=== PATIENT | female | born 1985 | race Asian ===

== ENCOUNTER 2016-02-20 16:18 | Emergency (ER) | payer OTHER ==
[2016-02-20 16:38] VITALS: BP 114/77; PULSE 97; TEMP 98.7; BMI 29.4
--- NOTE | 2016-02-20 17:03 | PDOC ---
History of Present Illness - General Chief Complaint: Nausea/Vomiting Stated Complaint: VOMITING SICK Time Seen by Provider: 02/20/16 17:00 Past History - Past Medical History Allergies/Adverse Reactions: Allergies Allergy/AdvReac Type Severity Reaction Status Date / Time No Known Allergies Allergy Verified 02/20/16 16:33 Home Medications: Ambulatory Orders Amox-Tr/K Cl [Augmentin - 875Mg Tablet] 1 tab PO BID #14 tablet 02/20/16 Benzonatate [Tessalon Pearls -] 200 mg PO TID #42 cap 02/20/16 Fluticasone Prop 0.05% Nasal [Flonase -] 1 - 2 spray NS DAILY #1 spray.pump 11/26 Asthma: No Cancer: No Cardiac Disorders: No Diabetes: Yes (niddm) HTN: No Seizures: No Thyroid Disease: Yes - Psycho/Social/Smoking Cessation Hx Anxiety: No Suicidal Ideation: No Smoking Status: No Smoking History: Never smoked Have you smoked in the past 12 months: No Number of Cigarettes Smoked Daily: 0 Information on smoking cessation initiated: No Hx Alcohol Use: No Drug/Substance Use Hx: No Substance Use Type: None Hx Substance Use Treatment: No *Physical Exam - Vital Signs Last Vital Signs Temp Pulse Resp BP Pulse Ox 98.7 F 97 H 18 114/77 100 02/20/16 16:34 02/20/16 16:34 02/20/16 16:34 02/20/16 16:34 02/20/16 16:34 ED Treatment Course - LABORATORY CBC & Chemistry Diagram: 02/20/16 17:45 02/20/16 18:01 Medical Decision Making - Medical Decision Making 02/21/16 00:24 I 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 89-year-old female presented because of persistent nasal congestion, cough and fever despite having finished a course of Zithromax and Tamiflu. Labs were reviewed. Patient had no infiltrates on her chest x-ray. Impression was sinusitis. She is discharged with descriptions for antibiotics, nasal decongestant *DC/Admit/Observation/Transfer Diagnosis at time of Disposition: Sinusitis - Discharge Dispostion Disposition: HOME Condition at time of disposition: Stable - Prescriptions Prescriptions: Amox-Tr/K Cl [Augmentin - 875Mg Tablet] 1 tab PO BID #14 tablet Fluticasone Prop 0.05% Nasal [Flonase -] 1 - 2 spray NS DAILY #1 spray.pump Benzonatate [Tessalon Pearls -] 200 mg PO TID #42 cap - Referrals Referrals: Terrie Lancaster MD [Primary Care Provider] - - Patient Instructions Additional Instructions: -Do not sleep supine and try to sleep with minimum 2 to 3 pillows -Take over the counter Sudafed -Take a hot shower before bed to clear out sinuses -make up girl prescriptions for 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
[2016-02-20] MEDS ORDERED: SODIUM CHLORIDE 1,000 ML IV STA (17:31)
[2016-02-20 18:06] LABS: BASOPHIL 0.8 % (0-2.0); EOSINOPHIL 0.4 % (0-4.5); MCH 22.7 pg (25.7-33.7); MCHC 30.9 g/dl (32.0-36.0); MEAN CELL VOLUME 73.3 fl (80-96); MEAN PLT VOLUME 8.1 fl (7.5-11.1); NEUTROPHILS 77.2 % (42.8-82.8); PLATELET COUNT 421 K/MM3 (134-434); RDW 16.6 % (11.6-15.6); WHITE BLOOD COUNT 19.5 K/mm3 (4.0-10.0)
[2016-02-20 18:12] LABS: URINE APPEARANCE CLEAR; URINE BILIRUBIN 1+ (NEGATIVE); URINE COLOR LT. YELLOW; URINE GLUCOSE (UA) NEGATIVE (NEGATIVE); URINE KETONE 1+ (NEGATIVE); URINE LEUK ESTERASE NEGATIVE (NEGATIVE); URINE NITRITE NEGATIVE (NEGATIVE); URINE UROBILINOGEN 0.2 E.U/dl E.U./dl (0.2-1.0)
[2016-02-20 18:29] LABS: URINE BLOOD 2+ (NEGATIVE); URINE PROTEIN 2+ (NEGATIVE)
--- NOTE | 2016-02-20 18:29 | PDOC ---
History of Present Illness - General Chief Complaint: Nausea/Vomiting Stated Complaint: VOMITING SICK Time Seen by Provider: 02/20/16 17:00 History Source: Patient Exam Limitations: No Limitations - History of Present Illness Initial Comments: 02/20/16 18:11 Patient is a 30 year old female with a PMHx of DMII who presents to the ED complaining of a 3 week history of nonproductive cough, nasal congestion, rhinorrhea nausea, nonbloody nonbilious vomiting, sinus pressure, ear fullness, and fevers. Patient states she took a z-pack and tamiflu that she completed and still remains the same. She states her cough has been ongoing causing her to have muscle aches throughout her upper body. She has been around her infant daughter and who have also been sick with similar symptoms. Patient also complains of nonbloody diarrhea for the last three to four weeks with the last episode this afternoon at 16:00. In the ED patient's vitals were within normal limits with no fever or palpitations. She denies palpitation, shortness of breath, chest pain She denies dysuria, frequency, urgency, hematuria She denies dizziness, loss of consciousness, acute visual changes PMHx: DM II, hypothyroidism PSHx: Allergies: NKDA Social: denies drugs, alcohol, smoking PCP: Dr. Tonny Falcon Past History - Past Medical History Allergies/Adverse Reactions: Allergies Allergy/AdvReac Type Severity Reaction Status Date / Time No Known Allergies Allergy Verified 02/20/16 16:33 Home Medications: Ambulatory Orders Amox-Tr/K Cl [Augmentin - 875Mg Tablet] 1 tab PO BID #14 tablet 02/20/16 Benzonatate [Tessalon Pearls -] 200 mg PO TID #42 cap 02/20/16 Fluticasone Prop 0.05% Nasal [Flonase -] 1 - 2 spray NS DAILY #1 spray.pump 11/26 Asthma: No Cancer: No Cardiac Disorders: No Diabetes: Yes (niddm) HTN: No Seizures: No Thyroid Disease: Yes - Psycho/Social/Smoking Cessation Hx Anxiety: No Suicidal Ideation: No Smoking Status: No Smoking History: Never smoked Have you smoked in the past 12 months: No Number of Cigarettes Smoked Daily: 0 Information on smoking cessation initiated: No Hx Alcohol Use: No Drug/Substance Use Hx: No Substance Use Type: None Hx Substance Use Treatment: No Review of Systems - Review of Systems Constitutional: Yes: Chills, Fever, Weakness. No: Diaphoresis, Night Sweats HEENTM: Yes: Ear Pain, Nose Congestion. No: Blurred Vision, Double Vision Respiratory: Yes: Cough, Wheezing. No: Orthopnea, Shortness of Breath, SOB with Exertion, SOB at Rest, Productive cough, Hemoptysis Cardiac (ROS): No: Chest Pain, Edema, Irregular Heart Rate, Lightheadedness, Palpitations, Syncope ABD/GI: Yes: Diarrhea, Nausea, Vomiting, Abdominal cramping. No: Constipated : No: Burning, Dysuria, Discharge Musculoskeletal: Yes: Muscle Pain. No: Back Pain, Joint Pain Integumentary: No: Bruising, Erythema Neurological: Yes: Headache. No: Numbness, Paresthesia, Seizure, Tingling, Tremors, Weakness, Unsteady Gait, Ataxia Psychiatric: No: Anxiety, Depression Endocrine: No: Excessive Sweating, Flushing, Intolerance to Cold, Intolerance to Heat Hematologic/Lymphatic: No: Anemia, Blood Clots *Physical Exam - Vital Signs Last Vital Signs Temp Pulse Resp BP Pulse Ox 98.7 F 97 H 18 114/77 100 02/20/16 16:34 02/20/16 16:34 02/20/16 16:34 02/20/16 16:34 02/20/16 16:34 - Physical Exam General Appearance: Yes: Other HEENT: positive: EOMI, TERESA, TMs Normal, Pharynx Normal, Nasal Congestion, Rhinorrhea, Sinus Tenderness. negative: Pharyngeal Erythema, Tonsillar Exudate , Tonsillar Erythema, Hearing Decreased, TM Bulging, TM Erythema Neck: positive: Supple. negative: Carotid bruit, Decreased range of motion Respiratory/Chest: positive: Chest Tender, Lungs Clear, Normal Breath Sounds. negative: Labored Respiration, Decreased Breath Sounds, Rales, Rhonchi, Stridor , Wheezing, Hyperresonant, Dullness, Plerual Rub Cardiovascular: positive: Regular Rhythm, Regular Rate, S1, S2. negative: Edema , JVD, Bradycardia, Tachycardia Gastrointestinal/Abdominal: positive: Tender, Soft, Tenderness (diffuse upon palpation ). negative: Decreased BS Musculoskeletal: positive: Normal Inspection. negative: CVA Tenderness (R), CVA Tenderness (L) Extremity: positive: Normal Capillary Refill, Normal Inspection, Normal Range of Motion Integumentary: positive: Normal Color, Warm Neurologic: positive: Fully Oriented, Alert, Normal Mood/Affect, Normal Response , Motor Strength 06/14 ED Treatment Course - LABORATORY CBC & Chemistry Diagram: 02/20/16 17:45 02/20/16 18:01 Medical Decision Making - Medical Decision Making 02/20/16 18:34 Patient is a 30 year old female with a PMHx of hypothyroidism and DMII who presents to the ED complaining of nonproductive cough, rhinorrhea, fever, chills , nausea, vomiting, abdominal pain, nasal congestion, ear fullness, sinus pressure for the last 3-4 weeks. Patient went to her PCP recently and prescribed her Azithromycin with Tamiflu that she completed yesterday. In the ED patient was afebrile. Differential Diagnosis include but not limited to Pneumonia, Bronchitis, Influenza, Asthma, Sinusitis, URI. ED Course and Treatment: -CBC -CMP -U/A -Chest X-ray -1 bolus IV NS for dehydration -Robitussin AC for cough 02/20/16 19:05 -CBC revealed a WBC of 19.5 -U/A Negative for UTI -CMP pending -Chest x-ray pending -Tylenol 975mg ordered 02/20/16 19:25 -CMP wnl -Chest x-ray revealed no acute pathology -Will order 1 duoneb due to excessive coughing -Will begin Augmentin 875mg -Will discharge after Duoneb treatment with a prescription for Augmentin for Sinusitis, Flonase and Tessalon Perle. *DC/Admit/Observation/Transfer Diagnosis at time of Disposition: Sinusitis Qualifiers: Sinusitis location: unspecified location Chronicity: acute Recurrence: not specified Qualified Code(s): J01.90 - Acute sinusitis, unspecified - Discharge Dispostion Disposition: HOME Condition at time of disposition: Stable Admit: No - Prescriptions Prescriptions: Amox-Tr/K Cl [Augmentin - 875Mg Tablet] 1 tab PO BID #14 tablet Fluticasone Prop 0.05% Nasal [Flonase -] 1 - 2 spray NS DAILY #1 spray.pump Benzonatate [Tessalon Pearls -] 200 mg PO TID #42 cap - Referrals Referrals: Terrie Lancaster MD [Primary Care Provider] - - Patient Instructions Additional Instructions: -Do not sleep supine and try to sleep with minimum 2 to 3 pillows -Take over the counter Sudafed -Take a hot shower before bed to clear out sinuses -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
[2016-02-20 18:34] LABS: URINE MUCUS MANY; URINE RBC 5 /hpf (0-3); URINE WBC 12 /hpf (3-5)
[2016-02-20] MEDS ORDERED: guaiFENesin/CODEINE 10 ML UNIT-DOSE CUPS PO ONE (18:34)
[2016-02-20 18:46] LABS: ALBUMIN 3.9 g/dl (3.4-5.0); ANION GAP 6 (8-16); BILIRUBIN,TOTAL 0.4 mg/dL (0.2-1.0); CALCIUM 9.2 mg/dL (8.5-10.1); CO2 26 mmol/L (21-32); CREATININE 0.7 mg/dL (0.55-1.02); GLUCOSE,RANDOM 87 mg/dL (74-106); SGPT/ALT 26 U/L (12-78); TOT PROT 8.5 g/dl (6.4-8.2)
[2016-02-20 18:47] LABS: ALK PHOS 96 U/L (45-117)
[2016-02-20] MEDS ORDERED: guaiFENesin/CODEINE 10 ML UNIT-DOSE CUPS ONE (18:52)
[2016-02-20 19:04] LABS: SGOT/AST 20 U/L (15-37)
[2016-02-20] MEDS ORDERED: ACETAMINOPHEN 325 MG TABLET (FP) PO ONE (19:13)
--- NOTE | 2016-02-20 19:32 | PDOC ---
Attending Attestation - Resident Resident Name: Gini Loza - HPI HPI: 02/20/16 19:31 30 yo female w fever,cough,URI symptoms for several weeks. Pt is NIDDM. finished tamiflu prescribed by PCP still symptoms - Physicial Exam PE: 02/20/16 19:32 alert and conversant 30 yo female maxillary sinus tenderness neck supple left TM-good light reflex,normal TM, right TM + cerumen lungs cta b/l abd soft,no rebound, no guarding ext from skin no rash 02/20/16 19:40 - Medical Decision Making 02/20/16 19:41 pt had neg cxr/neg UA,+ leukocystosis, normal glucose symptoms c/w sinusitis Pt treated for sinusitis, URI and discharged
[2016-02-20] MEDS ORDERED: AMOX TR/POT CLAV 875MG/125MG TABLETS (FP) PO ONE (19:33)
[2016-02-20] MEDS ORDERED: ALBUTEROL SO4 2.5/IPRATROPIUM 0.5 INH SOL 3 ML VIAL.NEB. NEB ONE ×2 (19:33→19:34)
[2016-02-20] MEDS ORDERED: ACETAMINOPHEN 325 MG TABLET (FP) ONE (19:34)
[2016-02-20] MEDS ORDERED: AMOX TR/POT CLAV 875MG/125MG TABLETS (FP) ONE (19:34)
== END 2016-02-20 20:08 | disposition home or self-care (01) ==
LOC: JER 16:18
PROC: 3E0F7GC Introduction of Other Therapeutic Substance into Respiratory Tract, Via Natural or Artificial Opening (ICD-10-PCS; principal; 2016-02-20)
PROC: 3E0337Z Introduction of Electrolytic and Water Balance Substance into Peripheral Vein, Percutaneous Approach (ICD-10-PCS; 2016-02-20)
DX: J01.90 Acute sinusitis, unspecified (principal); E11.9 Type 2 diabetes mellitus without complications; Z79.84 Long term (current) use of oral hypoglycemic drugs
CPT/HCPCS: 36415; 71010-TC; 80053; 81003; 81015; 84703; 85025; 94640; 96360; 99282-25

== ENCOUNTER 2016-11-13 20:14 | Emergency (ER) | payer OTHER ==
[2016-11-13 20:26] VITALS: BP 132/81; PULSE 75; TEMP 98; BMI 28.5
[2016-11-13] MEDS ORDERED: SODIUM CHLORIDE 1,000 ML IV STA (22:10)
[2016-11-13] MEDS ORDERED: METOCLOPRAMIDE HCL INJECTION 10 MG/2 ML VIAL IVPB ONE (22:11)
[2016-11-13] MEDS ORDERED: METOCLOPRAMIDE HCL INJECTION 10 MG/2 ML VIAL ONE (22:23)
[2016-11-13 22:26] LABS: URINE APPEARANCE SLCLOUDY; URINE BILIRUBIN NEGATIVE (NEGATIVE); URINE BLOOD 3+ (NEGATIVE); URINE COLOR YELLOW; URINE GLUCOSE (UA) NEGATIVE (NEGATIVE); URINE KETONE NEGATIVE (NEGATIVE); URINE LEUK ESTERASE NEGATIVE (NEGATIVE); URINE NITRITE NEGATIVE (NEGATIVE); URINE UROBILINOGEN NEGATIVE mg/dL (0.2-1.0)
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
[2016-11-13 22:38] LABS: BASOPHIL 0.9 % (0-2.0); EOSINOPHIL 2.3 % (0-4.5); MCHC 31.9 g/dl (32.0-36.0); MEAN CELL VOLUME 75.1 fl (80-96); MEAN PLT VOLUME 8.6 fl (7.5-11.1); NEUTROPHILS 60.8 % (42.8-82.8); PLATELET COUNT 327 K/MM3 (134-434); RDW 15.4 % (11.6-15.6); WHITE BLOOD COUNT 13.6 K/mm3 (4.0-10.0)
[2016-11-13 22:43] LABS: URINE PROTEIN 2+ (NEGATIVE)
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
[2016-11-13 22:44] LABS: URINE RBC 509 /hpf (0-3); URINE WBC 630 /hpf (3-5)
[2016-11-13 23:07] LABS: ALBUMIN 3.5 g/dl (3.4-5.0); ALK PHOS 81 U/L (45-117); ANION GAP 10 (8-16); BILIRUBIN,TOTAL 0.1 mg/dL (0.2-1.0); CALCIUM 8.9 mg/dL (8.5-10.1); CO2 23 mmol/L (21-32); CREATININE 0.6 mg/dL (0.55-1.02); GLUCOSE,RANDOM 113 mg/dL (74-106); SGOT/AST 15 U/L (15-37); SGPT/ALT 20 U/L (12-78); TOT PROT 7.3 g/dl (6.4-8.2)
[2016-11-14] MEDS ORDERED: IBUPROFEN 400 MG TABLET (FP) PO ONE ×2 (01:34→01:53)
[2016-11-14] MEDS ORDERED: METHOCARBAMOL 500 MG TABLET PO ONE (01:34)
[2016-11-14] MEDS ORDERED: NITROFURANTOIN MACROCRYSTAL 50 MG CAPSULE (FP) PO SCH (01:45)
[2016-11-14] MEDS ORDERED: METHOCARBAMOL 500 MG TABLET ONE (01:53)
[2016-11-14] MEDS ORDERED: NITROFURANTOIN MACROCRYSTAL 50 MG CAPSULE (FP) ONE (01:53)
--- NOTE | 2016-11-14 13:02 | PDOC ---
Patient Follow-up (Call Back) - Post ED Follow - Up Reason for Call Back: Complaint/Condition F/U (pharmacy called states that medications that were prescribed and not covered under his insurance requesting to be changed to naproxen and Flexeril, prescription sent)
== END 2016-11-14 02:02 | disposition home or self-care (01) ==
LOC: JER 20:14
PROC: 3E033GC Introduction of Other Therapeutic Substance into Peripheral Vein, Percutaneous Approach (ICD-10-PCS; principal; 2016-11-13)
DX: M54.2 Cervicalgia (principal); M54.5 Low back pain; Y92.414 Local residential or business street as the place of occurrence of the external cause; Y93.89 Activity, other specified; Y99.8 Other external cause status; E11.9 Type 2 diabetes mellitus without complications; Z79.84 Long term (current) use of oral hypoglycemic drugs; E03.9 Hypothyroidism, unspecified; V43.52XA Car driver injured in collision with other type car in traffic accident, initial encounter
CPT/HCPCS: 36415; 70450-TC; 71020-TC; 72050-TC; 72100-TC; 80053; 81003; 81015; 84703; 85025; 99282-25

== ENCOUNTER 2017-09-03 17:14 | Emergency (ER) | payer OTHER ==
--- NOTE | 2017-09-03 17:29 | PDOC ---
Rapid Medical Evaluation Time Seen by Provider: 09/03/17 17:29 Medical Evaluation: Allergies Allergy/AdvReac Type Severity Reaction Status Date / Time Penicillins Allergy Verified 11/13/16 20:33 09/03/17 17:30 Pt states she has three days of R neck pain, R shoulder pain, L rib pain and chest pain. Pt states that she feels the pain radiate down her R shoulder. Pain is made worse with movement. Exam: Ambulatory: AAOx3, moving all extremities Orders: urine preg Pt to proceed to ED for further eval. Discharge Disposition - Diagnosis Neck pain - Referrals - Patient Instructions - Post Discharge Activity
[2017-09-03 17:32] VITALS: BP 132/71; PULSE 80; TEMP 98.1; BMI 29.2
[2017-09-03] MEDS ORDERED: KETOROLAC TROMETHAMINE 60 MG/2 ML VIAL IM ONE (17:49)
[2017-09-03] MEDS ORDERED: CYCLOBENZAPRINE HCL 10 MG TABLET (FP) PO ONE (17:49)
--- NOTE | 2017-09-03 18:04 | PDOC ---
History of Present Illness - General Chief Complaint: Pain Stated Complaint: MUSCLE PAIN Time Seen by Provider: 09/03/17 17:29 History Source: Patient - History of Present Illness Timing/Duration: other Associated Symptoms: reports: nausea/vomiting. denies: diaphoresis, fever/ chills, shortness of breath Past History - Past Medical History Allergies/Adverse Reactions: Allergies Allergy/AdvReac Type Severity Reaction Status Date / Time Penicillins Allergy Verified 09/03/17 17:29 Home Medications: Ambulatory Orders Levothyroxine Sodium [Levo-T] 88 mcg PO DAILY 11/13/16 Cyclobenzaprine HCl [Flexeril 10 mg] 10 mg PO BID #20 tablet 11/14/16 Cyclobenzaprine HCl [Flexeril -] 10 mg PO TID #9 tablet 09/03/17 Ibuprofen [Motrin -] 2 tab PO Q6H #30 tablet 09/03/17 Metformin HCl [Metformin HCl ER] 500 mg PO BID 09/03/17 Venlafaxine HCl ER [Effexor Xr -] 37.5 mg PO DAILY 09/03/17 Asthma: No Cancer: No Cardiac Disorders: No Diabetes: Yes (niddm) HTN: No Seizures: No Thyroid Disease: Yes - Suicide/Smoking/Psychosocial Hx Smoking Status: No Smoking History: Never smoked Have you smoked in the past 12 months: No Number of Cigarettes Smoked Daily: 0 Hx Alcohol Use: No Drug/Substance Use Hx: No Substance Use Type: None Hx Substance Use Treatment: No Review of Systems - Review of Systems Constitutional: No: Fever Respiratory: No: Cough, Shortness of Breath Cardiac (ROS): No: Chest Pain, Lightheadedness, Palpitations ABD/GI: Yes: Nausea, Vomiting. No: Constipated, Diarrhea, Abdominal cramping : No: Dysuria, Flank Pain, Hematuria Musculoskeletal: Yes: Back Pain, Joint Pain. No: Joint Swelling *Physical Exam - Vital Signs Last Vital Signs Temp Pulse Resp BP Pulse Ox 98.1 F 80 20 132/71 100 09/03/17 17:29 09/03/17 17:29 09/03/17 17:29 09/03/17 17:29 09/03/17 17:29 - Physical Exam General Appearance: Yes: Appropriately Dressed. No: Apparent Distress HEENT: positive: Normal Voice Neck: positive: Supple Respiratory/Chest: negative: Respiratory Distress Gastrointestinal/Abdominal: positive: Soft. negative: Tender Musculoskeletal: negative: CVA Tenderness Extremity: positive: Normal Inspection, Other (pain to R shoulder with RUE abduction). negative: Tender, Swelling Integumentary: positive: Dry, Warm Neurologic: positive: Fully Oriented, Alert, Normal Mood/Affect Medical Decision Making - Medical Decision Making 09/03/17 17:53 32-year-old female, history of lqn-[id number] diabetes, hypothyroid, here with multiple complaints including bilateral upper back pain radiating to right shoulder and right arm 3 days. Unable to describe pain but states it is 8 out of 10, constant and worse when she moves her right upper extremity. Denies any trauma or obvious inciting factors. Did not take anything for pain. No h/o similar sxs. No chest pain, shortness of breath or palpitations. Also reports 3 e/o n/v over the past 2 days. No abd pain, change in BM, f/c. States she is sexually active with but uses condoms See exam Upper back/shoulder pain No trauma Exam remarkable for pain to site w/ ROM -pain control -reassess Intermittent n/v x 2 days No other GI sxs No irreg bleed No n/v currently Abd benign -upreg pending 09/03/17 19:21 Pt reports improvement in pain. Upreg negative. Patient stable for discharge with pain meds and to follow-up with her primary care physician *DC/Admit/Observation/Transfer Diagnosis at time of Disposition: Shoulder pain, right Qualifiers: Chronicity: acute Qualified Code(s): M25.511 - Pain in right shoulder Nausea & vomiting Qualifiers: Vomiting type: unspecified Vomiting Intractability: unspecified Qualified Code( s): R11.2 - Nausea with vomiting, unspecified - Discharge Dispostion Disposition: HOME Condition at time of disposition: Improved - Prescriptions Prescriptions: Cyclobenzaprine HCl [Flexeril -] 10 mg PO TID #9 tablet Ibuprofen [Motrin -] 2 tab PO Q6H #30 tablet - Referrals Referrals: Chester Alejandre MD [Primary Care Provider] - - Patient Instructions Printed Discharge Instructions: DI for Shoulder Pain Additional Instructions: The cause of your back and shoulder pain is most likely muscular. Take medications as prescribed and if symptoms persist, please follow-up with your primary care physician - Post Discharge Activity
[2017-09-03 18:46] LABS: URINE APPEARANCE CLEAR; URINE BILIRUBIN NEGATIVE (<2.0 mg/dL); URINE COLOR LTYELLOW; URINE GLUCOSE (UA) NEGATIVE (NEGATIVE); URINE KETONE NEGATIVE (NEGATIVE); URINE LEUK ESTERASE NEGATIVE (NEGATIVE); URINE NITRITE NEGATIVE (NEGATIVE); URINE PROTEIN NEGATIVE (NEGATIVE); URINE UROBILINOGEN NEGATIVE mg/dL (0.2-1.0)
[2017-09-03] MEDS ORDERED: KETOROLAC TROMETHAMINE 60 MG/2 ML VIAL ONE (18:48)
[2017-09-03] MEDS ORDERED: CYCLOBENZAPRINE HCL 10 MG TABLET (FP) ONE (18:49)
[2017-09-03 18:51] LABS: EPI CELLS FEW /HPF (FEW); URINE MUCUS RARE
== END 2017-09-03 19:23 | disposition home or self-care (01) ==
LOC: JERFT 17:14
PROC: 3E0233Z Introduction of Anti-inflammatory into Muscle, Percutaneous Approach (ICD-10-PCS; principal; 2017-09-03)
DX: M25.511 Pain in right shoulder (principal); R11.2 Nausea with vomiting, unspecified
CPT/HCPCS: 81003; 81015; 84703; 99281-25

== ENCOUNTER 2018-06-15 02:16 | Emergency (ER) | payer OTHER ==
--- NOTE | 2018-06-15 02:24 | PDOC ---
Attending Attestation - Resident Resident Name: LanieRambo - ED Attending Attestation I have performed the following: I have examined & evaluated the patient, The case was reviewed & discussed with the resident, I agree w/resident's findings & plan - HPI HPI: 06/15/18 02:49 N+V that began a couple hrs back. She is 17 weeks . Known IUP. Pt has never had AM sickness. She is . No ill contacts. Pt doesn't work. Pt will be hydrated and given antiemetics. She complains of slight abd pain due to the wretching. - Physicial Exam PE: 06/15/18 03:54 Agree with resident exam. - Medical Decision Making 06/15/18 03:54 Pt has intractable vomiting and she is 17 weeks . Her WBC is 17. Other labs are pending. She is being hydrated and received antiemetics. She will get a sono in the AM, as she is complaining of abd pain. 06/15/18 04:38 Pt is feeling vastly improved and she is ambulating about. 06/15/18 04:39 UA pending Heart Score/ECG Review - ECG Intrepretation Rhythm: Regular Rhythm - Ciales Ciales: Normal - P and GA Delta Wave(s) Present: No WPW: No - QRS Poor R Wave Progression: No - ST and T Early Repolarization: No Non Specific ST-T Wave changes: Yes Flattened T Waves: Yes Prolonged Q-T Interval: Yes - ECG Impressions Normal ECG: Yes Non-specific ST Elevation: No Ischemic Changes: Yes Torsades eduardo Pointes: No WPW: No
[2018-06-15 02:28] VITALS: TEMP 96; BMI 28.5
[2018-06-15] MEDS ORDERED: ONDANSETRON 4 MG/2 ML VIAL ONE (02:33)
[2018-06-15] MEDS ORDERED: METOCLOPRAMIDE HCL INJECTION 10 MG/2 ML VIAL ONE (02:33)
[2018-06-15] MEDS ORDERED: ONDANSETRON 4 MG/2 ML VIAL IVPUSH ONE (02:35)
[2018-06-15] MEDS ORDERED: FAMOTIDINE 20 MG/50 ML IVPB 20 MG/50 ML MG IVPB ONE ×2 (02:37→02:43)
[2018-06-15] MEDS ORDERED: METOCLOPRAMIDE HCL INJECTION 10 MG/2 ML VIAL IVPUSH ONE (02:37)
[2018-06-15] MEDS ORDERED: MAGNESIUM SULF 50% (8.12 MEQ/2 ML-1 GM VIAL) IVPB ONE (03:19)
[2018-06-15] MEDS ORDERED: MAGNESIUM 1GM/D5W - 2 GM/200 ML IVPB IVPB ONE (03:25)
[2018-06-15 03:41] LABS: BASO % 0.7 % (0-2.0); EOS % 1.9 % (0-4.5); HEMATOCRIT 33.4 % (32.4-45.2); HEMOGLOBIN 10.5 GM/dL (10.7-15.3); LYMPH % 35.3 % (8-40); MCH 24.5 pg (25.7-33.7); MCHC 31.4 g/dl (32.0-36.0); MEAN CELL VOLUME 78.1 fl (80-96); MEAN PLT VOLUME 9.9 fl (7.5-11.1); MONO % 6.2 % (3.8-10.2); NEUT % 55.9 % (42.8-82.8); PLATELET COUNT 332 K/MM3 (134-434); RBC 4.28 M/mm3 (3.60-5.2); RDW 14.5 % (11.6-15.6); WHITE BLOOD COUNT 17.1 K/mm3 (4.0-10.0)
--- NOTE | 2018-06-15 03:42 | PDOC ---
History of Present Illness - General Chief Complaint: Nausea/Vomiting Stated Complaint: NAUSEA/5 MO Time Seen by Provider: 06/15/18 02:24 History Source: Patient Exam Limitations: No Limitations - History of Present Illness Initial Comments: 06/15/18 03:13 32 yo currently 5 months preg no sig pmh presents to the ER for sudden onset NB/NB vomiting, dizziness and feelings of syncope. Pt states the s/s began suddenly 2 hours ago. Pt did not lose consciousness. Denies sick contacts , recent travel or eating different food. Pt Denies abdominal pain, vaginal bleeding, F/C, CP, SOB, back pain, changes in bowel or bladder habits. Pt sees Dr. Rosenthal in OB, saw him last week with reported normal check up and US. Past History - Past Medical History Allergies/Adverse Reactions: Allergies Allergy/AdvReac Type Severity Reaction Status Date / Time Penicillins Allergy Verified 06/15/18 02:26 Home Medications: Ambulatory Orders Levothyroxine Sodium [Levo-T] 88 mcg PO DAILY 11/13/16 Asthma: No Cancer: No Cardiac Disorders: No COPD: No Diabetes: Yes (niddm) HTN: No Seizures: No Thyroid Disease: Yes - Suicide/Smoking/Psychosocial Hx Smoking Status: No Smoking History: Never smoked Have you smoked in the past 12 months: No Number of Cigarettes Smoked Daily: 0 Hx Alcohol Use: No Drug/Substance Use Hx: No Substance Use Type: None Hx Substance Use Treatment: No Review of Systems - Review of Systems Constitutional: No: Chills, Fever Respiratory: No: Shortness of Breath Cardiac (ROS): No: Chest Pain ABD/GI: Yes: Nausea, Vomiting. No: Constipated, Diarrhea : No: Burning, Dysuria, Discharge, Frequency, Flank Pain, Hematuria, Incontinence Musculoskeletal: No: Back Pain Neurological: Yes: Weakness (generalized). No: Headache, Numbness, Paresthesia *Physical Exam - Vital Signs Last Vital Signs Temp Pulse Resp BP Pulse Ox 96.0 F L 74 20 129/81 99 06/15/18 02:24 06/15/18 02:24 06/15/18 02:24 06/15/18 02:24 06/15/18 02:24 - Physical Exam General Appearance: Yes: Nourished, Appropriately Dressed, Apparent Distress ( vomiting/retching) HEENT: positive: EOMI Neck: positive: Supple Respiratory/Chest: positive: Lungs Clear, Normal Breath Sounds. negative: Crackles, Rales, Rhonchi, Stridor, Wheezing Cardiovascular: positive: Regular Rhythm, Regular Rate, S1, S2. negative: Edema , JVD, Murmur Vascular Pulses: Dorsalis-Pedis (R): 4+, Doralis-Pedis (L): 4+ Gastrointestinal/Abdominal: positive: Flat, Soft. negative: Pulsatile Mass, Distended, Guarding, Rebound, Tenderness Musculoskeletal: negative: CVA Tenderness Extremity: positive: Normal Capillary Refill, Normal Inspection, Normal Range of Motion Integumentary: positive: Normal Color, Dry, Warm Neurologic: positive: Fully Oriented, Alert, Normal Mood/Affect, Normal Response , Motor Strength 5/5. negative: Confused, Disoriented ED Treatment Course - LABORATORY CBC & Chemistry Diagram: 06/15/18 03:19 06/15/18 03:19 - Medications Given in the ED: ED Medications Discontinued Medications Generic Name Dose Route Start Last Admin Trade Name Zacheryq PRN Reason Stop Dose Admin Famotidine/Sodium Chloride 20 mg in 50 mls @ 100 mls/hr 06/15/18 02:37 02:45 Pepcid 20 Mg Premixed Ivpb - IVPB 06/15/18 03:06 100 mls/hr ONCE ONE Administration Metoclopramide HCl 10 mg 06/15/18 02:37 06/15/18 02:41 Reglan Injection - IVPUSH 06/15/18 02:38 10 mg ONCE ONE Administration Ondansetron HCl 4 mg 06/15/18 02:35 06/15/18 02:41 Zofran Injection IVPUSH 06/15/18 02:36 4 mg ONCE ONE Administration Medical Decision Making - Medical Decision Making 06/15/18 03:42 Carlos A cell [phone] 32 yo currently 5 months preg no sig pmh presents to the ER for sudden onset NB/NB vomiting, dizziness and feelings of syncope. Pt states the s/s began suddenly 2 hours ago. Pt did not lose consciousness. Denies sick contacts , recent travel or eating different food. Pt Denies abdominal pain, vaginal bleeding, F/C, CP, SOB, back pain, changes in bowel or bladder habits. Pt sees Dr. Rosenthal in OB, saw him last week with reported normal check up and US. Vitals stable Pt presents to the ED n/v and retching for 2 hours. Pt vitals stable, denies abdominal pain. Will send labs to assess electrolyte status, give fluids and antiemetics Pt no longer vomiting, resting comfortably. Bedside US shows live IUP, will send for formal scan in the AM 06/15/18 04:37 Pt ambulating without difficulty and states she is no longer dizzy or nauseas. 06/15/18 06:30 Pt continues to rest comfortably without episodes of vomiting 06/15/18 06:53 CBC shows elevated WBC likely from vomiting/retching. No systemic s/s of infection, UA normal, no pulmonary s/s CMP elevated BS and UA shows 3+ glucose. Pt was given D5 NS. Gestational DM screening done by OB was negative. Will print copy of labs and make sure pt follows up with Primary Doctor and OB Pt s/o to day team for transvag and dispo *DC/Admit/Observation/Transfer - Referrals Referrals: Chester Alejandre MD [Primary Care Provider] - - Patient Instructions - Post Discharge Activity
[2018-06-15 03:54] LABS: INR 0.98 (0.83-1.09); PROTHROMBIN TIME (PATIENT) 11.6 SEC (9.7-13.0)
[2018-06-15 03:56] LABS: ACTIVATED PTT 30.3 SECONDS (25.2-36.5)
[2018-06-15] MEDS ORDERED: DEXTROSE 5%-NORMAL SALINE 500 ML IV ONE (04:09)
[2018-06-15 04:17] LABS: ALK PHOS 62 U/L (45-117); ANION GAP 10 MMOL/L (8-16); BILIRUBIN,TOTAL < 0.1 mg/dL (0.2-1); BLOOD UREA NITROGEN 9 mg/dL (7-18); CALCIUM 8.9 mg/dL (8.5-10.1); CHLORIDE 108 mmol/L (98-107); CO2 20 mmol/L (21-32); CREATININE 0.6 mg/dL (0.55-1.3); GLUCOSE,RANDOM 153 mg/dL (74-106); LIPASE 146 U/L (73-393); POTASSIUM 3.6 mmol/L (3.5-5.1); SGOT/AST 14 U/L (15-37); SGPT/ALT 13 U/L (13-61); SODIUM 139 mmol/L (136-145); TOT PROT 7.1 g/dl (6.4-8.2)
[2018-06-15 05:22] LABS: URINE APPEARANCE CLEAR; URINE BILIRUBIN NEGATIVE (NEGATIVE); URINE COLOR YELLOW; URINE GLUCOSE (UA) 3+ (NEGATIVE); URINE KETONE NEGATIVE (NEGATIVE); URINE LEUK ESTERASE NEGATIVE (NEGATIVE); URINE NITRITE NEGATIVE (NEGATIVE); URINE PROTEIN NEGATIVE (NEGATIVE); URINE UROBILINOGEN 0.2 mg/dL (0.2-1.0)
--- NOTE | 2018-06-15 06:59 | PDOC ---
*Physical Exam - Vital Signs Last Vital Signs Temp Pulse Resp BP Pulse Ox 96.0 F L 67 18 106/61 100 06/15/18 02:24 06/15/18 06:36 06/15/18 06:36 06/15/18 06:36 06/15/18 06:36 ED Treatment Course - LABORATORY CBC & Chemistry Diagram: 06/15/18 03:19 06/15/18 03:19 - ADDITIONAL ORDERS Additional order review: Laboratory Results 06/15/18 06/15/18 06/15/18 05:06 03:19 03:19 PT with INR 11.60 INR 0.98 PTT (Actin FS) 30.3 Sodium 139 Potassium 3.6 Chloride 108 H Carbon Dioxide 20 L Anion Gap 10 BUN 9 Creatinine 0.6 Creat Clearance w eGFR 116.60 Random Glucose 153 H Calcium 8.9 Total Bilirubin < 0.1 L AST 14 L ALT 13 Alkaline Phosphatase 62 Total Protein 7.1 Albumin 3.0 L Lipase 146 Urine Color Yellow Urine Appearance Clear Urine pH 7.0 D Ur Specific [place] 1.003 L Urine Protein Negative Urine Glucose (UA) 3+ H Urine Ketones Negative Urine Blood Negative Urine Nitrite Negative Urine Bilirubin Negative Urine Urobilinogen 0.2 Ur Leukocyte Esterase Negative 06/15/18 03:19 RBC 4.28 MCV 78.1 L MCHC 31.4 L RDW 14.5 MPV 9.9 D Neutrophils % 55.9 Lymphocytes % 35.3 D Monocytes % 6.2 Eosinophils % 1.9 Basophils % 0.7 - Medications Given in the ED: ED Medications Discontinued Medications Generic Name Dose Route Start Last Admin Trade Name Freq PRN Reason Stop Dose Admin Famotidine/Sodium Chloride 20 mg in 50 mls @ 100 mls/hr 06/15/18 02:37 02:45 Pepcid 20 Mg Premixed Ivpb - IVPB 06/15/18 03:06 100 mls/hr ONCE ONE Administration Dextrose/Sodium Chloride 500 mls @ 1,000 mls/hr 06/15/18 04:09 06/15/18 04:16 D5-Ns - IV 06/15/18 04:38 1,000 mls/hr ONCE ONE Administration Magnesium Sulfate 2 gm 06/15/18 03:19 06/15/18 03:31 Magnesium Sulfate IVPB 06/15/18 03:20 2 gm ONCE ONE Administration Metoclopramide HCl 10 mg 06/15/18 02:37 06/15/18 02:41 Reglan Injection - IVPUSH 06/15/18 02:38 10 mg ONCE ONE Administration Ondansetron HCl 4 mg 06/15/18 02:35 06/15/18 02:41 Zofran Injection IVPUSH 06/15/18 02:36 4 mg ONCE ONE Administration Medical Decision Making - Medical Decision Making 06/15/18 06:54 32 year old female 5 months presented to ED for nausea/vomiting, lightheadedness x2 hours [employer]GER. Pt denied LOC, fever, sick contacts, recent travel , abdominal pain, vaginal bleeding. Last OB visit with Dr. Rosenthal last week. Initial Vital Signs Temp Pulse Resp BP Pulse Ox 96.0 F L 74 20 129/81 99 06/15/18 02:24 06/15/18 02:24 06/15/18 02:24 06/15/18 02:24 06/15/18 02:24 Afebrile. No tachycardia. No tachypnea. Mild hypertension for . No hypoxia on room air. Pt was given IV D5-NS, zofran, pepcid, magnesium with resolution of symptoms. Vital Signs Temperature 96.0 F L 06/15/18 02:24 Pulse Rate 67 06/15/18 06:36 Respiratory Rate 18 06/15/18 06:36 Blood Pressure 106/61 06/15/18 06:36 O2 Sat by Pulse Oximetry (%) 100 06/15/18 06:36 Pt remained afebrile. BP decreased. No tachycardia. No tachypnea. No hypoxia on room air. CBC WBC 17.1 K/mm3 (4.0-10.0) H 06/15/18 03:19 RBC 4.28 M/mm3 (3.60-5.2) 06/15/18 03:19 Hgb 10.5 GM/dL (10.7-15.3) L 06/15/18 03:19 Hct 33.4 % (32.4-45.2) 06/15/18 03:19 MCV 78.1 fl (80-96) L 06/15/18 03:19 MCH 24.5 pg (25.7-33.7) L 06/15/18 03:19 MCHC 31.4 g/dl (32.0-36.0) L 06/15/18 03:19 RDW 14.5 % (11.6-15.6) 06/15/18 03:19 Plt Count 332 K/MM3 (134-434) 06/15/18 03:19 MPV 9.9 fl (7.5-11.1) D 06/15/18 03:19 Absolute Neuts (auto) 9.6 K/mm3 (1.5-8.0) H 06/15/18 03:19 Neutrophils % 55.9 % (42.8-82.8) 06/15/18 03:19 Lymphocytes % 35.3 % (8-40) D 06/15/18 03:19 Monocytes % 6.2 % (3.8-10.2) 06/15/18 03:19 Eosinophils % 1.9 % (0-4.5) 06/15/18 03:19 Basophils % 0.7 % (0-2.0) 06/15/18 03:19 Nucleated RBC % 0 % (0-0) 06/15/18 03:19 Leukocytosis. No anemia. No thrombocytopenia. CMP Sodium 139 mmol/L (136-145) 06/15/18 03:19 Potassium 3.6 mmol/L (3.5-5.1) 06/15/18 03:19 Chloride 108 mmol/L (98-107) H 06/15/18 03:19 Carbon Dioxide 20 mmol/L (21-32) L 06/15/18 03:19 Anion Gap 10 MMOL/L (8-16) 06/15/18 03:19 BUN 9 mg/dL (7-18) 06/15/18 03:19 Creatinine 0.6 mg/dL (0.55-1.3) 06/15/18 03:19 Creat Clearance w eGFR 116.60 (>60) 06/15/18 03:19 Random Glucose 153 mg/dL (74-106) H 06/15/18 03:19 Calcium 8.9 mg/dL (8.5-10.1) 06/15/18 03:19 Total Bilirubin < 0.1 mg/dL (0.2-1) L 06/15/18 03:19 AST 14 U/L (15-37) L 06/15/18 03:19 ALT 13 U/L (13-61) 06/15/18 03:19 Alkaline Phosphatase 62 U/L (45-117) 06/15/18 03:19 Total Protein 7.1 g/dl (6.4-8.2) 06/15/18 03:19 Albumin 3.0 g/dl (3.4-5.0) L 06/15/18 03:19 Lipase 146 U/L (73-393) 06/15/18 03:19 No electrolyte abnormalities. Hyperglycemia. No transaminitis. Normal lipase. Urine Test Results Urine Color Yellow 06/15/18 05:06 Urine Appearance Clear 06/15/18 05:06 Urine pH 7.0 (5.0-8.0) D 06/15/18 05:06 Ur Specific [place] 1.003 (1.010-1.035) L 06/15/18 05:06 Urine Protein Negative (NEGATIVE) 06/15/18 05:06 Urine Glucose (UA) 3+ (NEGATIVE) H 06/15/18 05:06 Urine Ketones Negative (NEGATIVE) 06/15/18 05:06 Urine Blood Negative (NEGATIVE) 06/15/18 05:06 Urine Nitrite Negative (NEGATIVE) 06/15/18 05:06 Urine Bilirubin Negative (NEGATIVE) 06/15/18 05:06 Ur Leukocyte Esterase Negative (NEGATIVE) 06/15/18 05:06 No evidence of UTI. Glucosuria. Pt is pending ultrasound. 06/15/18 09:09 Pt ambulating unassisted, appears well, reported she is hungry. 06/15/18 09:13 US report: single live uterine gestation at 17 weeks 3 days. HR 131. 06/15/18 09:22 Pt tolerated PO water and bread challenge. Pt informed of results and need to follow up with OBGYN and PCP. Pt given copy of US report. Discharge medications: Glolegis Pt discharged. *DC/Admit/Observation/Transfer Diagnosis at time of Disposition: Nausea & vomiting, - Discharge Dispostion Disposition: HOME Condition at time of disposition: Improved Decision to Admit order: No - Prescriptions Prescriptions: Doxylamine Succinate/Vit B6 [Cody Mejia 10-10 mg Tablet] 2 tablet PO HS #6 tablet.dr - Referrals Referrals: Chester Alejandre MD [Primary Care Provider] - - Patient Instructions Printed Discharge Instructions: DI for Hyperglycemia -- Adult, DI for Vomiting -- Adult Additional Instructions: You were seen today for nausea and vomiting. Your lab work showed a high white blood cell count, which may be from the vomiting, please have this number rechecked by your primary physician or OBGYN within a week. Your lab work showed high glucose (sugar) in your blood and urine. This may have been from the fluids you were given today, please have your primary physician or OBGYN recheck this within a week. Your ultrasound was normal. I have sent a medication for nausea/vomiting to your pharmacy. Take as advised on label. Follow up with your primary care doctor in 1-2 days. Follow up with your OBGYN in 1-2 days. Bring all paperwork given to you today to your appointments. Eat bland foods today, bread/rice/toast/applesauce. Tomorrow you can progress your diet as tolerated. Return to the Emergency Department for vomiting, fever, chills, abdominal pain, pelvic pain, vaginal bleeding, lightheadedness like you may pass out, dizziness like the room is spinning, severe headache, visual changes or any other new, worsening or concerning symptoms. - Post Discharge Activity
--- NOTE | 2018-06-15 10:00 | EKG ---
Test Reason : Blood Pressure : / mmHG Vent. Rate : 074 BPM Atrial Rate : 074 BPM P-R Int : 148 ms QRS Dur : 084 ms QT Int : 434 ms P-R-T Axes : 054 012 002 degrees QTc Int : 481 ms NORMAL SINUS RHYTHM PROLONGED QT ABNORMAL ECG WHEN COMPARED WITH ECG OF 30-JUL-2011 20:03, T WAVE VARIATION Confirmed by JYOTHI IRIZARRY MD ([id number]) on 06/15/2018 9:59:34 AM Referred By: Confirmed By:JYOTHI IRIZARRY MD
[2018-06-15 10:33] VITALS: BP 124/77; PULSE 78
== END 2018-06-15 10:25 | disposition home or self-care (01) ==
LOC: JER 02:16
PROC: BY4CZZZ Ultrasonography of Second Trimester, Single Fetus (ICD-10-PCS; principal; 2018-06-15)
PROC: 3E033GC Introduction of Other Therapeutic Substance into Peripheral Vein, Percutaneous Approach (ICD-10-PCS; 2018-06-15)
PROC: 3E033GC Introduction of Other Therapeutic Substance into Peripheral Vein, Percutaneous Approach (ICD-10-PCS; 2018-06-15)
PROC: 3E033GC Introduction of Other Therapeutic Substance into Peripheral Vein, Percutaneous Approach (ICD-10-PCS; 2018-06-15)
PROC: 3E033GC Introduction of Other Therapeutic Substance into Peripheral Vein, Percutaneous Approach (ICD-10-PCS; 2018-06-15)
DX: O26.892 Other specified pregnancy related conditions, second trimester (principal); R11.2 Nausea with vomiting, unspecified; Z3A.17 17 weeks gestation of pregnancy
CPT/HCPCS: 36415; 76801-TC; 76815-TC; 80053; 81003; 83690; 85025; 85610; 85730; 93005; 93010; 96365; 96375; 99284-25

== ENCOUNTER 2018-06-16 16:49 | Emergency (ER) | payer OTHER ==
[2018-06-16 16:56] VITALS: BP 107/51; PULSE 73; TEMP 97.7; BMI 28.6
--- NOTE | 2018-06-16 17:41 | PDOC ---
History of Present Illness - General Chief Complaint: Nausea/Vomiting Stated Complaint: VOMITING Time Seen by Provider: 06/16/18 17:34 Past History - Past Medical History Allergies/Adverse Reactions: Allergies Allergy/AdvReac Type Severity Reaction Status Date / Time Penicillins Allergy Verified 06/15/18 02:26 Home Medications: Ambulatory Orders Levothyroxine Sodium [Levo-T] 88 mcg PO DAILY 11/13/16 Doxylamine Succinate/Vit B6 [Cody Mejia 10-10 mg Tablet] 2 tablet PO HS #6 tablet.dr 06/15/18 Ondansetron [Zofran Odt -] 4 mg SL TID PRN #21 od.tablet MDD 3 tabs 06/16/18 Asthma: No Cancer: No Cardiac Disorders: No COPD: No Diabetes: Yes (niddm) HTN: No Seizures: No Thyroid Disease: Yes - Reproductive History Cervical CA: No Dysfunctional Uterine Bleeding: No Ectopic : No Endometrial CA: No Polycystic Ovaries: No Therapeutic (s) & number: No Tubal Ligation: No - Suicide/Smoking/Psychosocial Hx Smoking Status: No Smoking History: Never smoked Have you smoked in the past 12 months: No Number of Cigarettes Smoked Daily: 0 Hx Alcohol Use: No Drug/Substance Use Hx: No Substance Use Type: None Hx Substance Use Treatment: No Review of Systems - Review of Systems Able to Perform ROS?: Yes Is the patient limited Czech proficient: No Constitutional: No: Symptoms Reported, See HPI, Chills, Diaphoresis, Fever, Loss of Appetite, Malaise, Night Sweats, Weakness, Weight Stable, Unintentional Wgt. Loss, Unexplained wgt Loss, Other HEENTM: Yes: Nose Congestion, Other (mild nasal cpongestion with complaint of ear"fullness"). No: Symptoms Reported, See HPI, Eye Pain, Blurred Vision, Tearing, Recent change in vision, Double Vision, Cataracts, Ear Pain, Ocular Prothesis, Ear Discharge, Nose Pain, Tinnitus, Nose Bleeding, Hearing Loss, Throat Pain, Throat Swelling, Mouth Pain, Dental Problems, Difficulty Swallowing , Mouth Swelling Respiratory: No: Symptoms reported, See HPI, Cough, Orthopnea, Shortness of Breath, SOB with Exertion, SOB at Rest, Stridor, Wheezing, Productive cough, Hemoptysis, Other Cardiac (ROS): No: Symptoms Reported, See HPI, Chest Pain, Edema, Irregular Heart Rate, Lightheadedness, Palpitations, Syncope, Chest Tightness, Other ABD/GI: Yes: Vomiting : No: Symptoms Reported, See HPI, Burning, Dysuria, Discharge, Frequency, Flank Pain, Hematuria, Incontinence, Pain, Urgency, Testicular Mass, Testicular Swelling, Lesions, Testicular Pain, Other Musculoskeletal: No: Symptoms Reported, See HPI, Back Pain, Gout, Joint Pain, Joint Swelling, Muscle Pain, Muscle Weakness, Neck Pain, Joint Stiffness, Other Integumentary: No: Symptoms Reported, See HPI, Bruising, Change in Color, Change in Hair/Nails, Dryness, Erythema, Flushing, Lesions, Lumps, Pallor, Pruritus, Rash, Sweating, Other Neurological: Yes: Headache *Physical Exam - Vital Signs Last Vital Signs Temp Pulse Resp BP Pulse Ox 97.7 F 73 18 107/51 L 100 06/16/18 16:52 06/16/18 16:52 06/16/18 16:52 06/16/18 16:52 06/16/18 16:52 - Physical Exam General Appearance: Yes: Nourished, Appropriately Dressed HEENT: positive: Normal Voice, TMs Normal, Nasal Congestion Neck: positive: Supple Respiratory/Chest: positive: Lungs Clear Cardiovascular: positive: Regular Rhythm, Regular Rate Gastrointestinal/Abdominal: positive: Normal Bowel Sounds, Soft, Protuberent Musculoskeletal: positive: Normal Inspection Extremity: positive: Normal Inspection, Normal Range of Motion Integumentary: positive: Normal Color, Warm Neurologic: positive: Fully Oriented, Alert, Motor Strength 5/5 Medical Decision Making - Medical Decision Making 06/16/18 17:41 31-year-old female states she is approximately 17 weeks and presents because of nausea, vomiting, dizziness, frontal headache. 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 Patient has had about 8 episodes of vomiting so far today. ROS positive for painful plug ears, dizziness, frontal headache, nausea, vomiting, Past surgical history: . 2, para 1. Patient was given a prescription for Diclygis, but it was not covered by her insurance and it would have cost more than $600 Plan IV fluids, Zofran, off with, CBC, chemistry 06/16/18 20:18 pt did not want any labs work. 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 *DC/Admit/Observation/Transfer Diagnosis at time of Disposition: Nasal congestion Nausea and vomiting Qualifiers: Vomiting type: vomiting of fecal matter Qualified Code(s): R11.13 - Vomiting of fecal matter Qualifiers: Weeks of gestation: 17 weeks Qualified Code(s): Z3A.17 - 17 weeks gestation of Headache Qualifiers: Headache type: tension-type Headache chronicity pattern: unspecified pattern Intractability: not intractable Qualified Code(s): G44.209 - Tension-type headache, unspecified, not intractable - Discharge Dispostion Disposition: HOME Condition at time of disposition: Improved - Prescriptions Prescriptions: Ondansetron [Zofran Odt -] 4 mg SL TID PRN #21 od.tablet MDD 3 tabs PRN Reason: Nausea And/Or Vomiting - Referrals Referrals: Chester Alejandre MD [Primary Care Provider] - - Patient Instructions Printed Discharge Instructions: DI for Hyperemesis Gravidarum, DI for Nausea - - Adult, DI for Vomiting -- Adult Additional Instructions: please continue your care your prescription has been e prescribed to [facility] on [address] - Post Discharge Activity
[2018-06-16] MEDS ORDERED: SODIUM CHLORIDE 1,000 ML IV STA (17:46)
[2018-06-16] MEDS ORDERED: ONDANSETRON 4 MG/2 ML VIAL IVPUSH ONE (17:47)
[2018-06-16] MEDS ORDERED: ACETAMINOPHEN 1000 MG/100 ML VIAL (NON FORMULARY) IVPB ONE (17:48)
[2018-06-16] MEDS ORDERED: ACETAMINOPHEN INJECTION 100 ML IVPB ONE (19:30)
[2018-06-16] MEDS ORDERED: ONDANSETRON 4 MG/2 ML VIAL ONE (19:30)
--- NOTE | 2018-06-17 08:27 | EKG ---
Test Reason : Blood Pressure : / mmHG Vent. Rate : 070 BPM Atrial Rate : 070 BPM P-R Int : 130 ms QRS Dur : 078 ms QT Int : 412 ms P-R-T Axes : 051 019 006 degrees QTc Int : 444 ms NORMAL SINUS RHYTHM CANNOT RULE OUT INFERIOR INFARCT , AGE UNDETERMINED ABNORMAL ECG WHEN COMPARED WITH ECG OF 15-JUN-2018 03:03, MINIMAL CRITERIA FOR INFERIOR INFARCT ARE NOW PRESENT Confirmed by MAGDY CERNA, KATIE ([id number]) on 06/17/2018 8:27:26 AM Referred By: Confirmed By:KATIE CURRAN MD
== END 2018-06-16 20:12 | disposition home or self-care (01) ==
LOC: JER 16:49
DX: O26.892 Other specified pregnancy related conditions, second trimester (principal); O21.0 Mild hyperemesis gravidarum; G44.209 Tension-type headache, unspecified, not intractable; O24.912 Unspecified diabetes mellitus in pregnancy, second trimester; O99.282 Endocrine, nutritional and metabolic diseases complicating pregnancy, second trimester; Z3A.17 17 weeks gestation of pregnancy
CPT/HCPCS: 93005; 93010; 99282-25

== ENCOUNTER 2018-06-17 19:59 | Emergency (ER) | payer OTHER ==
--- NOTE | 2018-06-17 20:10 | PDOC ---
Rapid Medical Evaluation Time Seen by Provider: 06/17/18 20:08 Medical Evaluation: Allergies Allergy/AdvReac Type Severity Reaction Status Date / Time Penicillins Allergy Verified 06/15/18 02:26 06/17/18 20:08 HPI: Returns to the ER for vomiting + 17 weeks gravid unable to tolerate PO PE: NAD ORDERS: LABS Quant Beta PIV Discharge Disposition - Diagnosis Hyperemesis gravidarum - Referrals - Patient Instructions - Post Discharge Activity
[2018-06-17 20:11] VITALS: BMI 28.6
[2018-06-17] MEDS ORDERED: SODIUM CHLORIDE 0.9% 1000 ML INFUS.BAG IV ONE (21:34)
[2018-06-17] MEDS ORDERED: MECLIZINE HCL 25 MG TABLET (FP) PO ONE (22:08)
[2018-06-17] MEDS ORDERED: ONDANSETRON 4 MG/2 ML VIAL IVPUSH ONE (22:08)
[2018-06-17 22:20] LABS: BASO % 0.6 % (0-2.0); EOS % 0.4 % (0-4.5); HEMATOCRIT 36.9 % (32.4-45.2); HEMOGLOBIN 11.7 GM/dL (10.7-15.3); LYMPH % 16.9 % (8-40); MCH 24.6 pg (25.7-33.7); MCHC 31.8 g/dl (32.0-36.0); MEAN CELL VOLUME 77.1 fl (80-96); MEAN PLT VOLUME 9.2 fl (7.5-11.1); MONO % 4.4 % (3.8-10.2); NEUT % 77.7 % (42.8-82.8); PLATELET COUNT 341 K/MM3 (134-434); RBC 4.78 M/mm3 (3.60-5.2); RDW 14.2 % (11.6-15.6); WHITE BLOOD COUNT 16.1 K/mm3 (4.0-10.0)
[2018-06-17] MEDS ORDERED: DEXTROSE 5%-LACTATED RINGERS 1,000 ML IV SCH (22:30)
[2018-06-17 22:49] LABS: EPI CELLS 12.9 /HPF (0-5/HPF); PH,URINE 6.5 (5.0-8.0); URINE APPEARANCE CLEAR; URINE BILIRUBIN NEGATIVE (NEGATIVE); URINE CASTS 16 /lpf (0-8); URINE COLOR YELLOW; URINE GLUCOSE (UA) NEGATIVE (NEGATIVE); URINE KETONE 1+ (NEGATIVE); URINE LEUK ESTERASE NEGATIVE (NEGATIVE); URINE NITRITE NEGATIVE (NEGATIVE); URINE PROTEIN TRACE (NEGATIVE); URINE RBC 9 /hpf (0-4); URINE WBC 2 /hpf (0-5)
[2018-06-17] MEDS ORDERED: MECLIZINE HCL 25 MG TABLET (FP) ONE (22:49)
[2018-06-17] MEDS ORDERED: ONDANSETRON 4 MG/2 ML VIAL ONE (22:50)
[2018-06-17 23:02] LABS: ALBUMIN 3.2 g/dl (3.4-5.0); BILIRUBIN,TOTAL 0.2 mg/dL (0.2-1); CALCIUM 9.4 mg/dL (8.5-10.1); CREATININE 0.6 mg/dL (0.55-1.3); POTASSIUM 3.9 mmol/L (3.5-5.1); TOT PROT 7.8 g/dl (6.4-8.2)
--- NOTE | 2018-06-17 23:34 | PDOC ---
History of Present Illness - General Chief Complaint: Nausea/Vomiting Stated Complaint: NAUSEA/VOMITING Time Seen by Provider: 06/17/18 20:08 History Source: Patient Exam Limitations: No Limitations - History of Present Illness Initial Comments: 06/17/18 23:32 32F at 17wks by LMP who presents with nausea and vomiting with intolerance of PO for 3 days. The patient describes nausea, vomiting, with mild chills. She endorses inability to tolerate anything PO. She also endorses dysuria which started today. She denies fevers, vaginal bleeding/discharge, and abdominal pain /cramping. She also denies diarrhea. Past History - Past Medical History Allergies/Adverse Reactions: Allergies Allergy/AdvReac Type Severity Reaction Status Date / Time Penicillins Allergy Verified 06/15/18 02:26 Home Medications: Ambulatory Orders Levothyroxine Sodium [Levo-T] 88 mcg PO DAILY 11/13/16 Doxylamine Succinate/Vit B6 [Diclegis Dr 10-10 mg Tablet] 2 tablet PO HS #6 tablet.dr 06/15/18 Ondansetron [Zofran Odt -] 4 mg SL TID PRN #21 od.tablet MDD 3 tabs 06/16/18 Meclizine HCl 25 mg PO ONCE #14 tablet 06/18/18 Nitrofurantoin Monohyd/M-Cryst [Macrobid -] 100 mg PO BID #14 capsule 06/18/18 Asthma: No Cancer: No Cardiac Disorders: No COPD: No Diabetes: Yes (niddm) HTN: No Seizures: No Thyroid Disease: Yes - Reproductive History Cervical CA: No Dysfunctional Uterine Bleeding: No Ectopic : No Endometrial CA: No Polycystic Ovaries: No Therapeutic (s) & number: No Tubal Ligation: No - Suicide/Smoking/Psychosocial Hx Smoking Status: No Smoking History: Never smoked Have you smoked in the past 12 months: No Number of Cigarettes Smoked Daily: 0 Hx Alcohol Use: No Drug/Substance Use Hx: No Substance Use Type: None Hx Substance Use Treatment: No Review of Systems - Review of Systems Able to Perform ROS?: Yes Comments:: 06/17/18 23:38 GENERAL/CONSTITUTIONAL: No fever or chills. No weakness. HEAD, EYES, EARS, NOSE AND THROAT: No change in vision. No ear pain or discharge. No sore throat. CARDIOVASCULAR: No chest pain, palpitations, or lightheadedness. RESPIRATORY: No cough, wheezing, shortness of breath, or hemoptysis. GASTROINTESTINAL: + for nausea and vomiting. No diarrhea, constipation, or abdominal pain. GENITOURINARY: No dysuria, frequency, hematuria, or change in urination. MUSCULOSKELETAL: No joint or muscle swelling or pain. No neck or back pain. SKIN: No rash or lesions. NEUROLOGIC: No headache, numbness, tingling, focal weakness, loss of consciousness, or change in strength/sensation. Is the patient limited Malagasy proficient: No *Physical Exam - Vital Signs Last Vital Signs Temp Pulse Resp BP Pulse Ox 98 F 79 18 102/60 99 06/17/18 20:10 06/17/18 20:10 06/17/18 20:10 06/17/18 20:10 06/17/18 20:10 - Physical Exam Comments: 06/17/18 23:39 GENERAL: Well developed, well nourished. Awake and alert. No acute distress. HEENT: Normocephalic, atraumatic. Hearing grossly normal. Moist mucous membranes. PERRLA, EOMI. No conjunctival pallor. Sclera are non-icteric. NECK: Supple. Full ROM. No JVD. CARDIOVASCULAR: Regular rate and rhythm. No murmurs, rubs, or gallops. PULMONARY: No evidence of respiratory distress. Lungs clear to auscultation bilaterally. No wheezing, rales or rhonchi. ABDOMINAL: Soft. Gravid. Non-tender. Non-distended. No rebound or guarding. GENITOURINARY: No CVA tenderness bilaterally. MUSCULOSKELETAL: Normal range of motion at all joints. No bony deformities or tenderness. EXTREMITIES: No cyanosis. No clubbing. No edema. No calf tenderness or swelling. SKIN: Warm and dry. Normal capillary refill. No rashes. No jaundice. NEUROLOGICAL: Alert, awake, appropriate. Cranial nerves 2-12 grossly intact. Normal speech. Gait is normal without ataxia. PSYCHIATRIC: Cooperative. Good eye contact. Appropriate mood and affect. ED Treatment Course - LABORATORY CBC & Chemistry Diagram: 06/17/18 22:05 06/17/18 22:05 - ADDITIONAL ORDERS Additional order review: Laboratory Results 06/17/18 22:05 Sodium 137 Potassium 3.9 Chloride 106 Carbon Dioxide 23 Anion Gap 8 BUN 11 Creatinine 0.6 Est GFR (CKD-EPI)AfAm 140.77 Est GFR (CKD-EPI)NonAf 121.46 Random Glucose 86 Calcium 9.4 Total Bilirubin 0.2 AST 13 L ALT 13 Alkaline Phosphatase 65 Total Protein 7.8 Albumin 3.2 L Beta HCG, Quant 4723.1 06/17/18 22:05 RBC 4.78 MCV 77.1 L MCHC 31.8 L RDW 14.2 MPV 9.2 Neutrophils % 77.7 D Lymphocytes % 16.9 D Monocytes % 4.4 Eosinophils % 0.4 Basophils % 0.6 - Medications Given in the ED: ED Medications Discontinued Medications Generic Name Dose Route Start Last Admin Trade Name Freq PRN Reason Stop Dose Admin Sodium Chloride 1,000 ml 06/17/18 21:34 06/17/18 22:46 Normal Saline - IV 06/17/18 21:35 1,000 ml ONCE ONE Administration Medical Decision Making - Medical Decision Making 06/17/18 23:39 32F at 17 weeks who presents to the ER with intractable nausea and vomiting. Pt has not vomited in ED. Pt requesting food. Will give IV hydration and IV zofran and reassess. 06/18/18 00:31 Pt tolerated PO and states she feels much better. UA shows bacteruria. Pt is in second trimester and allergic to PCN's so will send macrobid and d/c with OBGYN f/u. *DC/Admit/Observation/Transfer Diagnosis at time of Disposition: Hyperemesis gravidarum - Discharge Dispostion Disposition: HOME Condition at time of disposition: Stable Decision to Admit order: No - Prescriptions Prescriptions: Meclizine HCl 25 mg PO ONCE #14 tablet Nitrofurantoin Monohyd/M-Cryst [Macrobid -] 100 mg PO BID #14 capsule - Referrals Referrals: Chester Alejandre MD [Primary Care Provider] - - Patient Instructions Printed Discharge Instructions: Nausea of (Alternative Therapy), DI for Vertigo Additional Instructions: Your ER visit is not complete until your follow up with your primary care physician and OBGYN. Please follow up with your primary care physician and OBGYN in 1-2 days. Please return to the ER if you have any signs or symptoms of chest pain, shortness of breath, uncontrollable fever, chills, nausea, vomiting, numbness, tingling, or weakness in any part of your body, changes in vision, or slurred speech. Please take your medications as prescribed. Please return to the ER if symptoms persist, worsen, or new symptoms arise. - Post Discharge Activity
--- NOTE | 2018-06-18 00:02 | PDOC ---
Documentation entered by Andreia Barrett SCRIBE, acting as scribe for Mihir Rodas MD. Mihir Rodas MD: This documentation has been prepared by the Arnold ashraf Daisy, SCRIBE, under my direction and personally reviewed by me in its entirety. I confirm that the documentation accurately reflects all work, treatment, procedures, and medical decision making performed by me. Attending Attestation - Resident Resident Name: Andrew Elder - ED Attending Attestation I have performed the following: I have examined & evaluated the patient, The case was reviewed & discussed with the resident, I agree w/resident's findings & plan - HPI HPI: 06/17/18 22:20 The patient is a 32YOF, currently 17 weeks , who presents to the ED for nausea and vomiting for the past 3 days and dysuria today. She reports she has been unable to tolerate PO intake. She also admits to chills. Patient was previously seen 2 other times in this ED this week for similar symptoms. Allergies: Penicillins - Physicial Exam PE: 06/18/18 00:00 Patient is awake and alert, well-nourished, in no distress Normocephalic, atraumatic PERRLA, EOMI, no nystagmus CTA RRR Abdomen is soft, nontender, nondistended No focal neurological deficits - Medical Decision Making 06/18/18 00:00 32-year-old female, 2 para 1, 17 weeks gestation presents with recurrent nausea, nonbloody nonbilious vomiting and vertigo. Serial abdominal exams reveal no focal tenderness, patient received IV fluids and antiemetics with significant improvements. CBC reveals persistent leukocytosis which is decreased from previous. Urinalysis reveals no evidence of pyuria, 9 RBCs per high-power field are noted. Patient's currently eating a meal in the ER. Will likely discharge.
[2018-06-18 00:49] VITALS: BP 108/64; PULSE 82; TEMP 98.1
== END 2018-06-18 00:57 | disposition home or self-care (01) ==
LOC: JER 19:59
PROC: 3E033GC Introduction of Other Therapeutic Substance into Peripheral Vein, Percutaneous Approach (ICD-10-PCS; principal; 2018-06-17)
DX: O26.892 Other specified pregnancy related conditions, second trimester (principal); O21.0 Mild hyperemesis gravidarum; R82.71 Bacteriuria; Z79.84 Long term (current) use of oral hypoglycemic drugs; O99.282 Endocrine, nutritional and metabolic diseases complicating pregnancy, second trimester; E03.8 Other specified hypothyroidism; O24.912 Unspecified diabetes mellitus in pregnancy, second trimester; Z3A.17 17 weeks gestation of pregnancy
CPT/HCPCS: 36415; 80053; 81003; 84702; 85025; 87086; 99283-25; J7030

== ENCOUNTER 2018-10-30 02:30 | Inpatient (IN) | payer OTHER ==
[~2018-10-30 02:30] MED LIST: ELECTROLYTE-148 SOLN 1,000 ML IV SCH
[2018-10-30 03:44] LABS: BASO % 1.4 % (0-2.0); EOS % 0.8 % (0-4.5); HEMATOCRIT 33.4 % (32.4-45.2); HEMOGLOBIN 10.4 GM/dL (10.7-15.3); MCH 23.4 pg (25.7-33.7); MCHC 31.2 g/dl (32.0-36.0); MEAN PLT VOLUME 10.7 fl (7.5-11.1); MONO % 7.2 % (3.8-10.2); NEUT % 59.6 % (42.8-82.8); RBC 4.46 M/mm3 (3.60-5.2); RDW 15.3 % (11.6-15.6); WHITE BLOOD COUNT 12.5 K/mm3 (4.0-10.0)
[2018-10-30 04:02] LABS: INR 0.95 (0.83-1.09); PROTHROMBIN TIME (PATIENT) 11.2 SEC (9.7-13.0)
[2018-10-30 04:05] LABS: ACTIVATED PTT 27.7 SECONDS (25.2-36.5)
[2018-10-30 04:11] LABS: PLATELET COUNT 199 K/MM3 (134-434)
[2018-10-30 04:16] LABS: PLATELET ESTIMATE ADEQUATE
[2018-10-30 04:39] LABS: BLOOD UREA NITROGEN 20.5 mg/dL (7-18); CALCIUM 10.6 mg/dL (8.5-10.1); POTASSIUM 4.6 mmol/L (3.5-5.1)
[2018-10-30] MEDS ORDERED: CITRIC ACID/SODIUM CITRATE 30 ML UNIT-DOSE CUP PO ONE (05:44)
[2018-10-30] MEDS ORDERED: ELECTROLYTE-148 SOLN 1,000 ML IV SCH (05:45)
--- NOTE | 2018-10-30 05:54 | HP ---
Past Medical History - Primary Care Physician PCP:: Speedy Vee - Admission Chief Complaint: 36.6 weeks, previous c/s . labor . GDM, Hypothyroidism History of Present Illness: 33 yo f g 2 p1001 edc 11/21/18. 36.6 weeks with hx of previous c/s, c/o contraction and diarrhea since 11 am today , cx 32 cm 80 vx -3 mi, fhr cat 1, has regular contraction after was hydrated , requesting repeat c/s, risks discussed History Source: Patient Limitations to Obtaining History: No Limitations - Past Medical History ...: 2 ...Para: 1 ...Term: 1 ...EDC by Dates: 11/21/18 ...EDC by Sono: 11/21/18 Heme/Onc: Yes: Anemia Psych: Yes: Anxiety Endocrine: Yes: Hypothyroidism, Other (GDM) Additional Medical History: Obesity, h/o MRSA 2010 - Past Surgical History Past Surgical History: Yes: None, Hx Myomectomy: No Hx Transabdominal Cerclage: No - Smoking History Smoking history: Never smoked Have you smoked in the past 12 months: No Aproximately how many cigarettes per day: 0 - Alcohol/Substance Use Hx Alcohol Use: No History of Substance Use: reports: None - Social History Usual Living Arrangement: Yes: With Spouse ADL: Independent History of Recent Travel: No Home Medications - Allergies Allergies/Adverse Reactions: Allergies Allergy/AdvReac Type Severity Reaction Status Date / Time Penicillins Allergy Hives Verified 10/30/18 05:39 - Home Medications Home Medications: Ambulatory Orders Levothyroxine Sodium [Levo-T] 112 mcg PO DAILY 11/13/16 Insulin Regular [NOVOLIN R VIAL *IVPUSH / ER / ICU Only*] 10 unit SQ DAILY PRN 10/30/18 Vitamins (Sjr) - 1 tab PO DAILY 10/30/18 Review of Systems - Review of Systems Constitutional: reports: Malaise Eyes: reports: No Symptoms HENT: reports: No Symptoms Neck: reports: No Symptoms Cardiovascular: reports: No Symptoms Respiratory: reports: No Symptoms Gastrointestinal: reports: Diarrhea Genitourinary: reports: No Symptoms Breasts: reports: No Symptoms Reported Musculoskeletal: reports: Muscle Pain Integumentary: reports: No Symptoms Neurological: reports: No Symptoms Endocrine: reports: No Symptoms Hematology/Lymphatic: reports: No Symptoms Psychiatric: reports: No Symptoms Physical Exam - Maternity Constitutional: Yes: Obese Eyes: Yes: WNL HENT: Yes: WNL Neck: Yes: WNL Cardiovascular: Yes: WNL Breast(s): Yes: WNL - Abdominal Exam/OB Fundal Height: 38 Number of Fetuses: Single Presentation: Vertex Contractions: Yes Regularity: Regular Intensity: Mod/Strong Monitor Mode: External Heart Rate Location: LLQ Decelerations: None - Vaginal Exam/OB Vaginal Bleediing: No Speculum Exam: No Dilatation (cm): 2cm Effacement (%): 80 Amniotic Membrane Status: Intact Presentation: Vertex/Position Station: -3 - Physical Exam Musculoskeletal: Yes: WNL Extremities: Yes: WNL Edema: Yes Edema: LLE: Trace, RLE: Trace Deep Tendon Reflex Grade: Normal +2 Psychiatric: Yes: WNL - Labs Lab Results: CBC, BMP 10/30/18 03:30 10/30/18 03:30 Hemorrhage Risk Assessment - Risk Factors Medium Risk Factors: Yes: Prior , uterine surgery,or multiple laparotomies Risk Score: 1 Risk Level: Medium Risk Problem List - Problems (1) with 36 completed weeks gestation Code(s): Z3A.36 - 36 WEEKS GESTATION OF (2) Gestational diabetes Code(s): O24.419 - GESTATIONAL DIABETES MELLITUS IN , UNSP CONTROL Qualifiers: Gestational diabetes mellitus control: insulin-controlled Trimester: third trimester Qualified Code(s): O24.414 - Gestational diabetes mellitus in , insulin controlled (3) Hypothyroidism affecting Code(s): O99.280 - ENDO, NUTRITIONAL AND METAB DISEASES COMP PREG, UNSP TRI; E03.9 - HYPOTHYROIDISM, UNSPECIFIED Qualifiers: Trimester: third trimester Qualified Code(s): O99.283 - Endocrine, nutritional and metabolic diseases complicating , third trimester; E03.9 - Hypothyroidism, unspecified (4) Labor established Code(s): QAV3464 - (5) Previous section complicating Code(s): O34.219 - MATERNAL CARE FOR UNSP TYPE SCAR FROM PREVIOUS DEL Assessment/Plan requesting repeat c/s, risks discussed , explained , declined for repeat c/s
[2018-10-30 06:05] VITALS: BMI 31.8
[2018-10-30] MEDS ORDERED: ONDANSETRON 4 MG/2 ML VIAL IVPUSH PRN (06:35)
[2018-10-30] MEDS ORDERED: KETOROLAC TROMETHAMINE 30 MG/1 ML VIAL ONE (06:42)
[2018-10-30] MEDS ORDERED: ceFAZolin SODIUM 1 GM VIAL ONE (06:46)
[2018-10-30] MEDS ORDERED: OXYTOCIN 20 UNITS in 0.9% NS 20 UNIT/1,000 ML INFUS.BAG IV ONE ×2 (07:09→12:39)
[2018-10-30] MEDS ORDERED: BUPIVACAINE 0.75% IN DEXTROSE/PF 2ML AMPULE NR ONE (07:17)
[2018-10-30] MEDS ORDERED: MIDAZOLAM HCL 2 MG/2 ML SINGLE DOSE VIAL ONE (07:33)
[2018-10-30] MEDS ORDERED: PROPOFOL 20 ML ONE (07:41)
[2018-10-30] MEDS ORDERED: SUCCINYLCHOLINE CHLORIDE 200 MG/10 ML SYRINGE ONE (08:13)
[2018-10-30] MEDS ORDERED: BENZOCAINE 20% 57 GM BOTTLE TP PRN (08:54)
[2018-10-30] MEDS ORDERED: BENZOCAINE 28 GM HEMORRHOIDAL OINTMENT PR PRN (08:54)
[2018-10-30] MEDS ORDERED: diphenhydrAMINE HCL 25 MG CAPSULE (FP) PO PRN (08:54)
[2018-10-30] MEDS ORDERED: WITCH HAZEL 50% (TUCKS) 40 PAD/JAR PAD TP PRN (08:54)
[2018-10-30] MEDS ORDERED: METHYLERGONOVINE MALEATE 0.2 MG/1 ML AMP IM PRN (08:54)
[2018-10-30] MEDS ORDERED: DEXTROSE 5%-LACTATED RINGERS 1,000 ML IV SCH (09:00)
[2018-10-30] MEDS ORDERED: OXYTOCIN 20 UNITS in 0.9% NS 20 UNIT/1,000 ML INFUS.BAG IV SCH (09:00)
[2018-10-30] MEDS ORDERED: IBUPROFEN 800 MG/8 ML IJ IVPB ONE (10:05)
[2018-10-30] MEDS: IBUPROFEN 800 MG/8 ML IJ IVPB PRN (10:15)
[2018-10-30] MEDS: LEVOTHYROXINE NA 112 MCG TABLET (FP) PO SCH (10:37)
[2018-10-30] MEDS: CEFAZOLIN 1 GM/D5W 1 GM/50 ML BAG IVPB SCH ×2 (15:08→22:50)
[2018-10-31] MEDS: LEVOTHYROXINE NA 112 MCG TABLET (FP) PO SCH (06:21)
[2018-10-31] MEDS: IBUPROFEN 800 MG/8 ML IJ IVPB PRN (06:21)
[2018-10-31 06:50] LABS: BASO % 0.3 % (0-2.0); EOS % 1.2 % (0-4.5); HEMATOCRIT 28.5 % (32.4-45.2); LYMPH % 17.2 % (8-40); MCH 23.6 pg (25.7-33.7); MCHC 31.5 g/dl (32.0-36.0); MEAN CELL VOLUME 75.1 fl (80-96); MEAN PLT VOLUME 10.1 fl (7.5-11.1); MONO % 3.5 % (3.8-10.2); NEUT % 77.8 % (42.8-82.8); PLATELET COUNT 191 K/MM3 (134-434); RDW 15.3 % (11.6-15.6); WHITE BLOOD COUNT 14.6 K/mm3 (4.0-10.0)
--- NOTE | 2018-10-31 08:31 | PN ---
Post Progress Note - Subjective Subjective: Patient without acute complaints. Reports tolerating oral intake without nausea or vomiting. Ambulating without dizziness. Denies fevers or chills. Pain well controlled with oral pain medication. without difficulty. Passing flatus. Post Day: 1 Type of Delivery: Repeat C/S Vital Signs: Vital Signs Temperature 98.7 F 10/31/18 06:07 Pulse Rate 82 10/31/18 06:07 Respiratory Rate 18 10/31/18 06:07 Blood Pressure 129/76 10/31/18 06:07 O2 Sat by Pulse Oximetry (%) 94 L 10/30/18 09:30 Breast Exam: Yes: Soft Uterus: Yes: Fundus Firm Incision: Yes: Dressing dry and intact Abdomen/GI: Yes: Abdomen soft Lochia: Yes: Rubra Lochia, amount: Small Extremities: Yes: Calves non-tender Activity: Ambulating - Labs Labs: CBC WBC 14.6 K/mm3 (4.0-10.0) H 10/31/18 05:30 RBC 3.80 M/mm3 (3.60-5.2) 10/31/18 05:30 Hgb 9.0 GM/dL (10.7-15.3) L 10/31/18 05:30 Hct 28.5 % (32.4-45.2) L 10/31/18 05:30 MCV 75.1 fl (80-96) L 10/31/18 05:30 MCH 23.6 pg (25.7-33.7) L 10/31/18 05:30 MCHC 31.5 g/dl (32.0-36.0) L 10/31/18 05:30 RDW 15.3 % (11.6-15.6) 10/31/18 05:30 Plt Count 191 K/MM3 (134-434) 10/31/18 05:30 MPV 10.1 fl (7.5-11.1) 10/31/18 05:30 Absolute Neuts (auto) 11.4 K/mm3 (1.5-8.0) H 10/31/18 05:30 Neutrophils % 77.8 % (42.8-82.8) D 10/31/18 05:30 Lymphocytes % 17.2 % (8-40) D 10/31/18 05:30 Monocytes % 3.5 % (3.8-10.2) L 10/31/18 05:30 Eosinophils % 1.2 % (0-4.5) 10/31/18 05:30 Basophils % 0.3 % (0-2.0) 10/31/18 05:30 Nucleated RBC % 0 % (0-0) 10/31/18 05:30 Platelet Estimate Adequate 10/30/18 03:30 Platelet Comment No clumping noted 10/30/18 03:30 Assessment/Plan POD # 1 VSS, Afebrile Encourage ambulation Routine post op care Rh pos
[2018-10-31] MEDS ORDERED: HYDROCORTISONE 1% TOPICAL CREAM 30 GM TUBE TP PRN (09:37)
[2018-10-31] MEDS: ACETAMINOPHEN 325 MG TABLET (FP) PO PRN (09:53)
[2018-10-31] MEDS: ENOXAPARIN NA (PORCINE) 40 MG/0.4 ML DISP.SYRIN SQ SCH (09:53)
[2018-10-31] MEDS: guaiFENesin 200 MG/10 ML 10 ML UNIT-DOSE CUPS PO PRN (10:13)
[2018-10-31] MEDS: oxyCODONE HCL 5 MG TABLET PO PRN ×3 (13:01→21:01)
[2018-10-31] MEDS: SIMETHICONE 80 MG TAB.CHEW (FP) PO PRN ×3 (13:02→21:01)
[2018-10-31] MEDS: IBUPROFEN 600 MG TABLET (FP) PO PRN ×2 (16:52→21:02)
--- NOTE | 2018-10-31 17:21 | PN ---
Progress Note (short form) - Note Progress Note: Anesthesiologist post op note, POD#1, S/P under spinal anesthesia with duramorph. VSS. Pain controlled. No apparent post anesthesia complications.
[2018-10-31] MEDS: BISACODYL 10 MG SUPP.RECT RC PRN (21:02)
[2018-11-01] MEDS: SIMETHICONE 80 MG TAB.CHEW (FP) PO PRN ×5 (01:52→19:33)
[2018-11-01] MEDS: oxyCODONE HCL 5 MG TABLET PO PRN ×5 (01:52→19:34)
[2018-11-01] MEDS: IBUPROFEN 600 MG TABLET (FP) PO PRN ×5 (01:52→19:33)
[2018-11-01] MEDS: LEVOTHYROXINE NA 112 MCG TABLET (FP) PO SCH (06:33)
[2018-11-01] MEDS: guaiFENesin 200 MG/10 ML 10 ML UNIT-DOSE CUPS PO PRN (06:36)
[2018-11-01] MEDS: ENOXAPARIN NA (PORCINE) 40 MG/0.4 ML DISP.SYRIN SQ SCH (10:21)
--- NOTE | 2018-11-01 13:56 | PN ---
Post Progress Note - Subjective Subjective: Patient without acute complaints. Reports tolerating oral intake without nausea or vomiting. Ambulating without dizziness. Denies fevers or chills. Pain well controlled with oral pain medication. without difficulty. Passing flatus. Post Day: 2 Type of Delivery: Repeat C/S Vital Signs: Vital Signs Temperature 97.5 F L 10/31/18 21:04 Pulse Rate 80 10/31/18 21:04 Respiratory Rate 18 10/31/18 21:04 Blood Pressure 143/80 10/31/18 21:04 O2 Sat by Pulse Oximetry (%) 94 L 10/30/18 09:30 Breast Exam: Yes: Soft Uterus: Yes: Fundus Firm Incision: Yes: Sutures intact Abdomen/GI: Yes: Abdomen soft Lochia: Yes: Rubra Lochia, amount: Small Extremities: Yes: Calves non-tender Activity: Ambulating - Labs Labs: CBC WBC 14.6 K/mm3 (4.0-10.0) H 10/31/18 05:30 RBC 3.80 M/mm3 (3.60-5.2) 10/31/18 05:30 Hgb 9.0 GM/dL (10.7-15.3) L 10/31/18 05:30 Hct 28.5 % (32.4-45.2) L 10/31/18 05:30 MCV 75.1 fl (80-96) L 10/31/18 05:30 MCH 23.6 pg (25.7-33.7) L 10/31/18 05:30 MCHC 31.5 g/dl (32.0-36.0) L 10/31/18 05:30 RDW 15.3 % (11.6-15.6) 10/31/18 05:30 Plt Count 191 K/MM3 (134-434) 10/31/18 05:30 MPV 10.1 fl (7.5-11.1) 10/31/18 05:30 Absolute Neuts (auto) 11.4 K/mm3 (1.5-8.0) H 10/31/18 05:30 Neutrophils % 77.8 % (42.8-82.8) D 10/31/18 05:30 Lymphocytes % 17.2 % (8-40) D 10/31/18 05:30 Monocytes % 3.5 % (3.8-10.2) L 10/31/18 05:30 Eosinophils % 1.2 % (0-4.5) 10/31/18 05:30 Basophils % 0.3 % (0-2.0) 10/31/18 05:30 Nucleated RBC % 0 % (0-0) 10/31/18 05:30 Platelet Estimate Adequate 10/30/18 03:30 Platelet Comment No clumping noted 10/30/18 03:30 Assessment/Plan POD # 2 VSS, Afebrile Encourage ambulation Routine post op care Rh pos
[2018-11-01] MEDS: BISACODYL 10 MG SUPP.RECT RC PRN (18:35)
[2018-11-01] MEDS ORDERED: SENNOSIDES/DOCUSATE COMBO (SENNA PLUS) TABLET (UD) PO PRN (22:00)
[2018-11-02] MEDS: SIMETHICONE 80 MG TAB.CHEW (FP) PO PRN ×5 (02:01→21:21)
[2018-11-02] MEDS: IBUPROFEN 600 MG TABLET (FP) PO PRN ×6 (02:01→21:22)
[2018-11-02] MEDS: oxyCODONE HCL 5 MG TABLET PO PRN ×2 (02:01→06:37)
[2018-11-02] MEDS: LEVOTHYROXINE NA 112 MCG TABLET (FP) PO SCH (06:37)
[2018-11-02] MEDS: guaiFENesin 200 MG/10 ML 10 ML UNIT-DOSE CUPS PO PRN (06:37)
[2018-11-02 07:48] LABS: BASO % 0.5 % (0-2.0); EOS % 2.4 % (0-4.5); HEMATOCRIT 28.6 % (32.4-45.2); LYMPH % 20.7 % (8-40); MCH 23.8 pg (25.7-33.7); MCHC 31.5 g/dl (32.0-36.0); MEAN CELL VOLUME 75.6 fl (80-96); MEAN PLT VOLUME 9.6 fl (7.5-11.1); MONO % 3.4 % (3.8-10.2); PLATELET COUNT 224 K/MM3 (134-434); RBC 3.79 M/mm3 (3.60-5.2); RDW 15.2 % (11.6-15.6); WHITE BLOOD COUNT 10.5 K/mm3 (4.0-10.0)
[2018-11-02] MEDS: ENOXAPARIN NA (PORCINE) 40 MG/0.4 ML DISP.SYRIN SQ SCH (09:42)
[2018-11-02] MEDS: ACETAMINOPHEN 325 MG TABLET (FP) PO PRN ×4 (09:48→21:22)
--- NOTE | 2018-11-02 20:29 | PN ---
Post Progress Note - Subjective Subjective: Patient without acute complaints. Reports tolerating oral intake without nausea or vomiting. Ambulating without dizziness. Denies fevers or chills. Pain well controlled with oral pain medication. without difficulty Post Day: 3 Type of Delivery: Repeat C/S Vital Signs: Vital Signs Temperature 97.8 F 11/02/18 08:00 Pulse Rate 70 11/02/18 08:00 Respiratory Rate 20 11/02/18 08:00 Blood Pressure 162/65 11/02/18 08:00 O2 Sat by Pulse Oximetry (%) 94 L 10/30/18 09:30 Breast Exam: Yes: Soft Uterus: Yes: Fundus Firm Incision: Yes: Sutures intact Abdomen/GI: Yes: Abdomen soft, Passing flatus, Tolerating PO Lochia: Yes: Rubra Lochia, amount: Small Extremities: Yes: Calves non-tender Activity: Ambulating - Labs Labs: CBC WBC 10.5 K/mm3 (4.0-10.0) H 11/02/18 07:00 RBC 3.79 M/mm3 (3.60-5.2) 11/02/18 07:00 Hgb 9.0 GM/dL (10.7-15.3) L 11/02/18 07:00 Hct 28.6 % (32.4-45.2) L 11/02/18 07:00 MCV 75.6 fl (80-96) L 11/02/18 07:00 MCH 23.8 pg (25.7-33.7) L 11/02/18 07:00 MCHC 31.5 g/dl (32.0-36.0) L 11/02/18 07:00 RDW 15.2 % (11.6-15.6) 11/02/18 07:00 Plt Count 224 K/MM3 (134-434) 11/02/18 07:00 MPV 9.6 fl (7.5-11.1) 11/02/18 07:00 Absolute Neuts (auto) 7.6 K/mm3 (1.5-8.0) 11/02/18 07:00 Neutrophils % 73.0 % (42.8-82.8) 11/02/18 07:00 Lymphocytes % 20.7 % (8-40) D 11/02/18 07:00 Monocytes % 3.4 % (3.8-10.2) L 11/02/18 07:00 Eosinophils % 2.4 % (0-4.5) D 11/02/18 07:00 Basophils % 0.5 % (0-2.0) 11/02/18 07:00 Nucleated RBC % 0 % (0-0) 11/02/18 07:00 Platelet Estimate Adequate 10/30/18 03:30 Platelet Comment No clumping noted 10/30/18 03:30 Assessment/Plan POD # 3 VSS, Afebrile Encourage ambulation Routine post op care Rh pos Plan to D/C POD #4
[2018-11-03] MEDS: IBUPROFEN 600 MG TABLET (FP) PO PRN ×3 (01:19→10:44)
[2018-11-03] MEDS: SIMETHICONE 80 MG TAB.CHEW (FP) PO PRN ×2 (01:19→06:41)
[2018-11-03] MEDS: ACETAMINOPHEN 325 MG TABLET (FP) PO PRN ×3 (01:20→10:44)
[2018-11-03] MEDS: LEVOTHYROXINE NA 112 MCG TABLET (FP) PO SCH (06:41)
--- NOTE | 2018-11-03 07:34 | DS ---
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: Vital Signs Temperature 98.6 F 11/02/18 22:00 Pulse Rate 87 11/02/18 22:00 Respiratory Rate 20 11/02/18 22:00 Blood Pressure 143/72 11/02/18 22:00 O2 Sat by Pulse Oximetry (%) 94 L 10/30/18 09:30 Constitutional: Yes: Well Nourished, No Distress, Calm Eyes: Yes: WNL, Conjunctiva Clear HENT: Yes: WNL, Atraumatic, Normocephalic Neck: Yes: WNL, Supple, Trachea Midline Cardiovascular: Yes: WNL, Regular Rate and Rhythm Respiratory: Yes: WNL, Regular, CTA Bilaterally Gastrointestinal: Yes: WNL, Normal Bowel Sounds, Soft Renal/: Yes: WNL ....Post : Yes: Uterus firm, Uterus non-tender Breast(s): Yes: WNL Musculoskeletal: Yes: WNL Extremities: Yes: WNL Integumentary: Yes: WNL Wound/Incision: Yes: Clean/Dry, Well Approximated Neurological: Yes: WNL, Alert, Oriented ...Motor Strength: WNL Psychiatric: Yes: WNL, Alert, Oriented Labs: CBC, BMP 11/02/18 07:00 10/30/18 03:30 Delivery - Delivery Type of Anesthesia: Spinal EBL (cc): 500 Delivery, Single - Stages of Labor Date of Delivery: 10/30/18 Time of Delivery: 07:28 Time Placenta Delivered: 07:29 - Condition of [place] Farmer/Dietitian Chief Present: Yes Name: Nicholas Guevara Infant Gender: Female Weight: 6 lb 4 oz Position: OT Total Hours ROM (Hrs/Mins): 0Hrs/6Mins - 1 Minute Total Score: 9 5 Minutes Total Score: 9 - [place] Feeding Plan Initial Plan: Elected not to breastfeed exclusively throughout hospitalization Discharge Summary Reason For Visit: C/SECTION Current Active Problems Gestational diabetes (Acute) Hypothyroidism affecting (Acute) Labor established (Acute) with 36 completed weeks gestation (Acute) Previous section complicating (Acute) Procedures: Principal: Primary C/section Hospital Course: unremarkable Condition: Good - Instructions Diet, Activity, Other Instructions: Physical activity Resume your normal everyday activity as tolerated no heavy lifting or exercise until seen by your surgeon. You may walk unlimited antonino of and climb stairs. You may resume driving the car when you feel safe and comfortable behind the wheel. No sexual activity as instructed. Wound care If you have a bandage, leave it on, and keep dry for 48-72 hours. After that time discard the outer bandage. If they are tapes on the skin under the out of bandage leave them in place. They will peel off in the next 7 to 10 days. Do Not Peel them off. You may shower the day after surgery. If there are tapes present on the skin, you may shower over them. Diet There are no dietary restrictions. Eat healthy, high-fiber foods. Drink 6 to 8 glasses of liquid each day. This will assist in keeping your bowels are regular. Pain management You may take Tylenol or acetaminophen or Ibuprofen (for example, Motrin, Advil etc.) from my pain prescription medication is ordered should be taken as prescribed for moderate to severe pain. Call MD for any of the following: Severe pain not relieved by medication Fever of 101 or higher Excessive bleeding or drainage on dressing Inability to urinate Referrals: Manuel Rosenthal MD [Staff Physician] - Disposition: HOME - Home Medications Comprehensive Discharge Medication List: Ambulatory Orders Levothyroxine Sodium [Levo-T] 112 mcg PO DAILY 11/13/16 Insulin Regular [NOVOLIN R VIAL *IVPUSH / ER / ICU Only*] 10 unit SQ DAILY PRN 10/30/18 Vitamins (Sjr) - 1 tab PO DAILY 10/30/18
[2018-11-03] MEDS: ENOXAPARIN NA (PORCINE) 40 MG/0.4 ML DISP.SYRIN SQ SCH (11:48)
[2018-11-03 12:24] VITALS: BP 129/72; PULSE 74; TEMP 97.5
--- NOTE | 2018-11-03 17:17 | PATH ---
Surgical Pathology Report Patient Name: YOUSIF PADILLA Med. Rec. #: [id number] /Age/Gender: 1985 (Age: 33) / F Account: [id number] Location: [facility] OBS/PROPERTY SPECIALIST Taken: 10/30/2018 Received: 11/02/2018 Reported: 11/03/2018 Physicians: Speedy Vee M.D. Specimen(s) Received PLACENTA Clinical History , 36.6 weeks, repeat section, in spontaneous labor Final Diagnosis PLACENTA, SECTION: 460 G THIRD TRIMESTER PLACENTA WITH TRIVASCULAR UMBILICAL CORD AND UNREMARKABLE PLACENTAL MEMBRANES. Electronically Signed Katrina Wolfe M.D. Gross Description The specimen is received fresh labeled placenta and is a 460 gram, 15 x 15 x 2 cm. placenta with attached membranes and umbilical cord. The attached membranes are gonzalez, opaque and insert marginally. The umbilical cord measures 18 cm. in length and averages 1.3 cm. in diameter. The cord inserts eccentrically, 6 cm. to the nearest margin. No true knots or strictures are identified. Cut surface of the umbilical cord reveals 3 vessels. The surface is prescott-blue with minimal fibrin deposition and appropriate caliber vessels. The maternal surface is red-brown with focal defects. Sectioning reveals red-brown, spongy parenchyma. No lesions are identified. [place] sections are submitted in three cassettes as follows: 1- membrane rolls and umbilical cord; 2-3- full thickness sections of placenta. MLSZ/11/02/2018 sanml/11/02/2018
== END 2018-11-03 14:45 | disposition home or self-care (01) | DRG 540 ==
LOC: JDEL 02:30 → JLDR 05:20 → J3W 14:30
PROVIDERS: ADMIT Obstetrics & Gynecology; ATTEND Obstetrics & Gynecology
PROC: 10D00Z1 Extraction of Products of Conception, Low, Open Approach (ICD-10-PCS; principal; 2018-10-30)
DX: O99.284 Endocrine, nutritional and metabolic diseases complicating childbirth (principal); O34.219 Maternal care for unspecified type scar from previous cesarean delivery; O24.424 Gestational diabetes mellitus in childbirth, insulin controlled; Z3A.36 36 weeks gestation of pregnancy; Z37.0 Single live birth
CPT/HCPCS: 36415; 36600; 80048; 82803; 82962; 85025; 85610; 85730; 86593; 86850; 86900; 86901; 88307-TC

== ENCOUNTER 2023-08-01 13:17 | Inpatient (IN) | payer OTHER ==
[2023-08-01] MEDS: ELECTROLYTE-148 SOLN 1,000 ML IV ONE (13:50)
[2023-08-01 14:20] VITALS: BMI 33.0
[2023-08-01] MEDS: ELECTROLYTE-148 SOLN 1,000 ML IV SCH ×2 (14:55→23:30)
[2023-08-01] MEDS ORDERED: morphine SULFATE/PF 1 MG/2 ML (2cc Syringe - QUVA) ONE (15:05)
[2023-08-01] MEDS: CITRIC ACID/SODIUM CITRATE 30 ML UNIT-DOSE CUP PO ONE (15:14)
[2023-08-01] MEDS ORDERED: FENTANYL CITRATE/PF 50 MCG/ML VIAL ONE (16:43)
[2023-08-01] MEDS ORDERED: IBUPROFEN 800 MG/8 ML IJ IVPB PRN (17:28)
[2023-08-01] MEDS ORDERED: BENZOCAINE 20% 57 GM BOTTLE TP PRN (17:28)
[2023-08-01] MEDS ORDERED: METHYLERGONOVINE MALEATE 0.2 MG/1 ML AMP IM PRN (17:28)
[2023-08-01] MEDS ORDERED: WITCH HAZEL 50% (TUCKS) 40 PAD/JAR PAD TP PRN (17:28)
[2023-08-01] MEDS ORDERED: ONDANSETRON 4 MG/2 ML VIAL ONE (17:31)
[2023-08-01] MEDS: ONDANSETRON 4 MG/2 ML VIAL IVPB PRN (17:35)
[2023-08-01] MEDS ORDERED: OXYTOCIN 20 UNITS in 0.9% NS 20 UNIT/1,000 ML INFUS.BAG IV ONE (18:29)
[2023-08-01] MEDS: OXYTOCIN 20 UNITS in 0.9% NS 20 UNIT/1,000 ML INFUS.BAG IV SCH (18:30)
[2023-08-01] MEDS ORDERED: INSULIN (NOVOLOG) ASPART 100 UNITS/ML 10ML VIAL ONE (19:24)
[2023-08-01] MEDS: INSULIN (NOVOLOG) ASPART 100 UNITS/ML 10ML VIAL SQ STA (19:30)
[2023-08-01] MEDS ORDERED: ceFAZolin SODIUM 1 GM VIAL ONE (20:14)
[2023-08-01 20:43] LABS: BASO % 0.2 % (0-2.0); EOS % 0.2 % (0-4.5); HEMATOCRIT 30.8 % (32.4-45.2); HEMOGLOBIN 9.8 GM/dL (10.7-15.3); LYMPH % 7.6 % (8-40); MCH 26.1 pg (25.7-33.7); MCHC 31.8 g/dl (32.0-36.0); MEAN CELL VOLUME 81.9 fl (80-96); MEAN PLT VOLUME 9.7 fl (7.5-11.1); MONO % 2.8 % (3.8-10.2); NEUT % 89.2 % (42.8-82.8); PLATELET COUNT 195 10^3/uL (134-434); RBC 3.77 M/mm3 (3.60-5.2); RDW 13.8 % (11.6-15.6); WHITE BLOOD COUNT 20.6 K/mm3 (4.0-10.0)
[2023-08-01 20:54] LABS: POTASSIUM 4.3 mmol/L (3.5-5.1)
[2023-08-01 20:57] LABS: ALBUMIN 2.3 g/dl (3.4-5.0); BLOOD UREA NITROGEN 16.9 mg/dL (7-18)
[2023-08-01 21:00] LABS: CREATININE 0.6 mg/dL (0.55-1.3)
[2023-08-01 21:01] LABS: BILIRUBIN,TOTAL 0.4 mg/dL (0.2-1)
[2023-08-01 21:02] LABS: TOT PROT 5.7 g/dl (6.4-8.2)
[2023-08-01 21:06] LABS: CALCIUM 7.9 mg/dL (8.5-10.1)
[2023-08-01 21:19] LABS: ANISOCYTOSIS 1+; MACROCYTOSIS 0; TARGET CELLS 1+
[2023-08-01] MEDS: CLINDAMYCIN 600MG PREMIX IVPB 600 MG/50 ML BAG IVPB SCH (21:45)
[2023-08-02] MEDS: IBUPROFEN 600 MG TABLET (FP) PO PRN (01:13)
[2023-08-02] MEDS: MUPIROCIN 2% TOPICAL OINTMENT FOR DECOLONIZATION NS SCH (01:29)
[2023-08-02] MEDS ORDERED: oxyCODONE HCL 5 MG TABLET PO PRN (05:28)
[2023-08-02] MEDS: INSULIN ASPART SLIDING SCALE (NOVOLOG) 1 VIAL SQ SCH (06:17)
[2023-08-02 06:39] LABS: EPI CELLS 5 /uL (0-25.1); HYALINE CASTS 1 /uL (0-3.1); PH,URINE 5.5 (5.0-8.0); URINE APPEARANCE CLEAR; URINE BACTERIA 5 /uL (0-1359); URINE BILIRUBIN NEGATIVE (NEGATIVE); URINE COLOR YELLOW; URINE GLUCOSE (UA) NEGATIVE (NEGATIVE); URINE KETONE NEGATIVE (NEGATIVE); URINE LEUK ESTERASE NEGATIVE (NEGATIVE); URINE NITRITE NEGATIVE (NEGATIVE); URINE PROTEIN 1+ (NEGATIVE); URINE RBC 199 /uL (0-23.9); URINE WBC 12 /uL (0-25.8)
[2023-08-02 06:43] LABS: BASO % 0.2 % (0-2.0); EOS % 0.1 % (0-4.5); HEMATOCRIT 27.1 % (32.4-45.2); HEMOGLOBIN 8.6 GM/dL (10.7-15.3); LYMPH % 12.2 % (8-40); MCH 26.2 pg (25.7-33.7); MCHC 31.9 g/dl (32.0-36.0); MEAN CELL VOLUME 82.2 fl (80-96); MEAN PLT VOLUME 10.4 fl (7.5-11.1); MONO % 6.4 % (3.8-10.2); NEUT % 81.1 % (42.8-82.8); PLATELET COUNT 203 10^3/uL (134-434); RBC 3.29 M/mm3 (3.60-5.2); RDW 13.8 % (11.6-15.6); WHITE BLOOD COUNT 17.2 K/mm3 (4.0-10.0)
[2023-08-02 06:50] LABS: INR 1.06 (0.83-1.09)
[2023-08-02 07:16] LABS: POTASSIUM 4.9 mmol/L (3.5-5.1)
[2023-08-02 07:18] LABS: CALCIUM 7.5 mg/dL (8.5-10.1)
[2023-08-02 07:19] LABS: BLOOD UREA NITROGEN 18.8 mg/dL (7-18); MAGNESIUM 1.9 mg/dL (1.8-2.4)
[2023-08-02 07:22] LABS: CREATININE 0.8 mg/dL (0.55-1.3); PHOSPHOROUS 3.3 mg/dL (2.5-4.9)
[2023-08-02] MEDS: SIMETHICONE 80 MG TAB.CHEW (FP) PO PRN (09:12)
[2023-08-02] MEDS: SENNOSIDES/DOCUSATE COMBO (SENNA PLUS) TABLET (UD) PO PRN (09:12)
[2023-08-02] MEDS: ENOXAPARIN NA (PORCINE) 40 MG/0.4 ML DISP.SYRIN SQ SCH (09:12)
[2023-08-02] MEDS: LEVOTHYROXINE NA 125 MCG TABLET (FP) PO SCH (09:12)
[2023-08-02 12:21] VITALS: RESP 18
[2023-08-02] MEDS: PRENATAL VITAMINS W/ FOLIC ACID TABLET (FP) PO SCH (13:31)
[2023-08-02] MEDS ORDERED: BISACODYL 10 MG SUPP.RECT RC PRN (17:28)
[2023-08-02] MEDS: FERROUS SO4 325 MG TABLET (FP) PO SCH (21:56)
[2023-08-02] MEDS: LABETALOL HCL 100 MG TABLET (FP) PO SCH (21:56)
[2023-08-02] MEDS: INSULIN (LEVEMIR) 100 UNITS/ML UNITS SQ SCH (21:58)
[2023-08-02] MEDS ORDERED: CHLORHEXIDINE GLUCONATE 4% CLEANSER FOR DECOLONIZATION TP SCH (22:00)
[2023-08-03 08:10] LABS: BASO % 0.4 % (0-2.0); EOS % 1.8 % (0-4.5); HEMATOCRIT 21.6 % (32.4-45.2); LYMPH % 19.3 % (8-40); MCH 26.1 pg (25.7-33.7); MCHC 31.4 g/dl (32.0-36.0); MEAN CELL VOLUME 83.1 fl (80-96); MEAN PLT VOLUME 10.1 fl (7.5-11.1); MONO % 6.2 % (3.8-10.2); NEUT % 72.3 % (42.8-82.8); PLATELET COUNT 183 10^3/uL (134-434); RDW 13.8 % (11.6-15.6); WHITE BLOOD COUNT 12.6 K/mm3 (4.0-10.0)
[2023-08-03 08:16] LABS: HEMOGLOBIN 6.8 GM/dL (10.7-15.3)
[2023-08-03] MEDS ORDERED: ASCORBIC ACID 250 MG TABLET (FP) PO SCH (10:00)
[2023-08-03] MEDS: ASCORBIC ACID 500 MG TABLET (FP) PO SCH (10:47)
[2023-08-03] MEDS: LABETALOL HCL 100 MG TABLET (FP) PO SCH (10:48)
[2023-08-03] MEDS: ACETAMINOPHEN 325 MG TABLET (FP) PO PRN (13:44)
[2023-08-03] MEDS: diphenhydrAMINE HCL 25 MG CAPSULE (FP) PO PRN (21:54)
[2023-08-04] MEDS: ZOLPIDEM TARTRATE 5 MG TABLET PO ONE (00:43)
[2023-08-04 06:23] LABS: BASO % 0.4 % (0-2.0); EOS % 2.6 % (0-4.5); HEMATOCRIT 22.2 % (32.4-45.2); HEMOGLOBIN 7.1 GM/dL (10.7-15.3); LYMPH % 19.7 % (8-40); MCH 26.2 pg (25.7-33.7); MCHC 31.8 g/dl (32.0-36.0); MEAN CELL VOLUME 82.5 fl (80-96); MEAN PLT VOLUME 9.3 fl (7.5-11.1); MONO % 5.2 % (3.8-10.2); NEUT % 72.1 % (42.8-82.8); PLATELET COUNT 215 10^3/uL (134-434); RBC 2.69 M/mm3 (3.60-5.2); RDW 13.8 % (11.6-15.6)
[2023-08-04] MEDS: oxyCODONE HCL 5 MG TABLET PO PRN (21:54)
[2023-08-05 09:37] VITALS: BP 139/68; PULSE 73; TEMP 98.2
== END 2023-08-05 11:50 | disposition home or self-care (01) | DRG 540 ==
LOC: JLDR 13:17 → JICU 22:57 → J3W 08-02 11:33
PROVIDERS: ADMIT Obstetrics & Gynecology; ATTEND Obstetrics & Gynecology
PROC: 10D00Z1 Extraction of Products of Conception, Low, Open Approach (ICD-10-PCS; principal; 2023-08-01)
DX: O34.219 Maternal care for unspecified type scar from previous cesarean delivery (principal); O24.429 Gestational diabetes mellitus in childbirth, unspecified control; O99.284 Endocrine, nutritional and metabolic diseases complicating childbirth; O13.4 Gestational [pregnancy-induced] hypertension without significant proteinuria, complicating childbirth; O90.89 Other complications of the puerperium, not elsewhere classified; R68.0 Hypothermia, not associated with low environmental temperature; R61 Generalized hyperhidrosis; D72.829 Elevated white blood cell count, unspecified; O90.81 Anemia of the puerperium; R53.83 Other fatigue; Z3A.38 38 weeks gestation of pregnancy; Z37.0 Single live birth
CPT/HCPCS: 36415; 59409; 71045-TC-FY; 80048; 80053; 81003; 82962; 83036; 83605; 83735; 84100; 85025; 85610; 85730; 86780; 86850; 86900; 86901; 87040; 87081; 87086; 88307-TC; 93970-TC; 94010